=== PATIENT | male | born 1935 | race Caucasian/White ===

== ENCOUNTER 2017-08-19 13:07 | Inpatient (IN) ==
[2017-08-19] MEDS ORDERED: Aspirin 81 MG TAB.CHEW PO ONE (13:30)
--- NOTE | 2017-08-19 13:33 | Emergency Department Note ---
Disposition Clinical Impression: Chest pain Qualifiers: Chest pain type: unspecified Qualified Code(s): R07.9 - Chest pain, unspecified Disposition: Admitted As Inpatient Condition: Fair Time of Disposition: 16:03 General Adult HPI - General Chief complaint: ED Chest Pain Stated complaint: chest pain Time Seen by Provider: 08/19/17 13:30 Source: patient Mode of arrival: ambulatory Limitations: no limitations Nursing Notes Reviewed: Yes Vital Signs Reviewed: Yes - History of Present Illness HPI Narrative: Patient is a 81-year-old male with past medical history of hypertension and high cholesterol presents immersed part with complaint of intermittent chest pain has been going on since 8 PM yesterday evening. The patient states that he has had a sided chest pain that he is unable to describe that occurs and 32nd intervals and resolves on its own. He states that he has shortness of breath and weakness when the pain occurs. Denies any nausea, vomiting, radiation of pain, exertional pain. Patient states that he was shoveling snow this morning and he did not have the pain at that time. Denies any cardiac history his last cardiac workup was a stress test done 5 years ago in which she said that was okay. The patient took 2 baby aspirin prior to arrival. Denies any history of blood clots. Pain Scale: 0 - Related Data Home Medications Medication Instructions Recorded Confirmed Aspirin Enteric Coated [Aspirin EC] 81 mg PO DAILY 03/12/15 07/13/17 Atorvastatin Calcium [Lipitor] 20 mg PO DAILY 03/12/15 07/13/17 Celecoxib [Celebrex] 100 mg PO DAILY 03/12/15 07/13/17 Alfuzosin HCl [Uroxatral] 10 mg PO DAILY 05/05/15 07/13/17 Finasteride [Proscar] 5 mg PO DAILY 05/05/15 07/13/17 Previous Rx's Medication Instructions Recorded Abiraterone Acetate [Zytiga] 4 tab PO DAILY #120 tablet 05/24/17 predniSONE [PredniSONE] 5 mg PO BIDWM #60 tablet 05/24/17 Allergies Allergy/AdvReac Type Severity Reaction Status Date / Time No Known Allergies Allergy Verified 06/22/17 13:11 All systems ED: reviewed and negative except as stated. Review of Systems: As Per HPI Past Medical History - Past Medical History Attestation: Yes The following information was validated with the patient. Medical history: Reports: arthritis, cancer, hyperlipidemia, hypertension Surgical history: Reports: cholecystectomy Psychiatric history: Reports: no psych history - Social History Smoking Status: Never smoker Smokeless Tobacco Status: No Alcohol use: Reports: none Drug use: Reports: none Physical Exam Patient is hypertensive in the 160s/100s however otherwise his vital signs are within normal limits. The patient is in no acute distress she is sitting up in bed smiling and toxemia. This. - General Limitations: no limitations General appearance: alert, in no apparent distress - Head Head exam: atraumatic, normocephalic, normal inspection - Eye Eye exam: Present: normal appearance, PERRL, EOMI - ENT ENT exam: normal exam, normal oropharynx, mucous membranes moist - Neck Neck exam: Present: normal inspection, full ROM, trachea midline - Chest Chest inspection: Present: normal inspection, symmetric chest wall rise - Respiratory Respiratory exam: Present: normal lung sounds bilaterally. Absent: respiratory distress, wheezes - Cardiovascular Cardiovascular exam: Present: regular rate, normal rhythm, normal heart sounds, +S1, +S2 - Abdominal Exam Abdominal exam: Present: soft, Non-Tender, normal bowel sounds - Extremities Exam Extremities exam: Present: normal inspection, full ROM, normal capillary refill. Absent: tenderness, pedal edema - Back Exam Back exam: Present: normal inspection, full ROM. Absent: tenderness, CVA tenderness (R), CVA tenderness (L) - Neurological Exam Neurological exam: Present: alert, oriented X3 - Psychiatric Psychiatric exam: Present: normal affect, normal mood - Skin Skin exam: Present: warm, dry, intact, normal color Course Course Narrative: Patient is 78-year-old male he has no cardiac history with his last workup being a stress test done over 5 years ago was presented with complaint of intermittent chest pain has been going on since yesterday with about 8 episodes total. He is currently a symptomatically emergency department. The patient states he was shoveling snow prior to arrival and that was not causing him any chest pain. The plan is to cardiac work up of the patient including a chest x- ray, EKG and troponin and we will do basic labs to rule out any anemia or electrolyte disorder. Due to the patient being asymptomatic and satting well on room air and no tachycardia do not suspect that this is a PE or DVT he has no clinical findings or history to suggest so. We will also give the patient a full dose of aspirin. Nitroglycerin due to him being asymptomatic. - Reevaluation(s) Reevaluation #1: Patient remains stable and in good condition. His chest x-ray was unremarkable , EKG was negative for any ischemia and his labs were also unremarkable. I discussed his case with the hospitalist sales operations associate and plan to admit him for chest pain and the patient agrees with this plan. Time: 16:02 Vital Signs Temperature 98.3 F 08/19/17 13:11 Pulse Rate 99 08/19/17 13:11 Respiratory Rate 16 08/19/17 13:11 Blood Pressure 160/74 08/19/17 13:11 O2 Sat by Pulse Oximetry 98 08/19/17 13:11 Temperature 98.3 F 08/19/17 13:11 Pulse Rate 69 08/19/17 15:15 Respiratory Rate 16 08/19/17 15:15 Blood Pressure 134/91 08/19/17 15:15 O2 Sat by Pulse Oximetry 96 08/19/17 15:15 Oxygen Delivery Oxygen Delivery Room Air Medical Decision Making - Medical Records Medical records reviewed: Yes I reviewed the patient's medical records. - Lab Data Lab results reviewed: Yes I reviewed the patient's lab results. Result diagrams: 08/19/17 13:38 08/19/17 13:38 Lab Results 08/19/17 08/19/17 08/19/17 Range/Units 13:38 13:38 13:38 WBC 9.6 (4.3-11.1) K/mcL RBC 5.20 (4.19-5.50) M/mcL Hgb 15.0 (12.9-16.9) g/dL Hct 46.5 (37.5-50.1) % MCV 89.4 (83.0-100.0) fL MCH 28.8 (28.0-33.3) pg MCHC 32.3 (31.6-35.5) g/dL RDW 12.9 (11.5-14.5) % Plt Count 165 (140-400) K/mcL MPV 10.2 (9.4-12.4) fL Immature Gran % 0.2 (0-4) % Seg Neutrophils % 47.2 % Lymphocytes % 45.3 % Monocytes % 6.0 % Eosinophils % 1.1 % Basophils % 0.2 % Neutrophils # 4.5 (1.6-8.9) K/mcL Lymphocytes # 4.4 (0.6-4.6) K/mcL Monocytes # 0.6 (0.0-1.3) K/mcL Eosinophils # 0.1 (0.0-0.6) K/mcL Basophils # 0.0 (0.0-0.2) K/mcL Sodium 140 (136-145) mEq/L Potassium 4.4 (3.5-5.1) mEq/L Chloride 108 H (98-107) mEq/L Carbon Dioxide 26 (23-29) mEq/L BUN 21 (8-23) mg/dL Creatinine 0.93 (0.70-1.30) mg/dL Est GFR ( Amer) > 60 (> 60) Est GFR (Non-Af Amer) > 60 (> 60) BUN/Creatinine Ratio 23 (6-26) Glucose 99 (70-105) mg/dL Calculated Osmolality 293 (280-300) Calcium 9.3 (8.6-10.3) mg/dL Troponin I < 0.03 (< 0.04) ng/mL - Radiology Data Radiology results reviewed: Yes I reviewed the patient's radiology results. Chest X-Ray 08/19/17 13:30 IMPRESSION: No acute pulmonary process. D/ / Declan Walton / Declan Walton Interpreting Provider: Declan Walton - EKG Data EKG #1 EKG attestation: Yes I reviewed and interpreted this EKG. EKG results narrative: Patient EKG done at 13:23 shows sinus rhythm at a rate of 89 bpm. Normal axis. W[place] is 180, QRS 13, QT is 372 and QTC is 418 these are within normal limits. Good R-wave progression. No signs of ST elevation, ST depression or new Q waves. The patient does have Q waves in lead III , However these are unchanged from his old EKG which was done on September 2011.
[2017-08-19 13:47] LABS: Basophils % 0.2 %; Eosinophils # 0.1 K/mcL (0.0-0.6); Eosinophils % 1.1 %; Hematocrit 46.5 % (37.5-50.1); Immature Granulocytes % 0.2 % (0-4); Lymphocytes # 4.4 K/mcL (0.6-4.6); Lymphocytes % 45.3 %; Mean Corpuscular HGB Conc 32.3 g/dL (31.6-35.5); Mean Corpuscular Hemoglobin 28.8 pg (28.0-33.3); Mean Corpuscular Volume 89.4 fL (83.0-100.0); Mean Platelet Volume 10.2 fL (9.4-12.4); Monocytes # 0.6 K/mcL (0.0-1.3); Neutrophils # 4.5 K/mcL (1.6-8.9); Platelet Count 165 K/mcL (140-400); Red Cell Distribution Width 12.9 % (11.5-14.5); Segmented Neutrophils % 47.2 %
--- NOTE | 2017-08-19 13:56 | Emergency Department Note ---
START Narrative - START START: I examined this patient and my medical decision-making was reviewed with the GOLF SALES MANAGER/PA/Advanced Practice Nurse/Resident Physician. I agree with the documented findings, disposition and treatment plan as described except to the extent set forth below. ED attending note: Patient seen with emergency medicine resident Dr. Montez Multani. We independently evaluated the patient. We independently had face-to- face contact with the patient. Please see a copy of his note for details of the history and physical, evaluation, management and disposition of this emergency Department patient. Briefly: 81-year-old male history of high cholesterol and high blood pressure. No cardiac history. Last stress test was 5 years ago and was "okay". Presents with several days of nonexertional 30 seconds only discomfort with radiation into the arms. Patient is pain-free at this time. EKG shows no acute ischemic changes but nonspecific changes. Patient's HEART score is 4 which is above the threshold for consideration of discharge home. Patient be worked up for ACS with admission anticipated. Disposition pending
[2017-08-19 14:01] LABS: BUN/Creatinine Ratio 23 (6-26); Blood Urea Nitrogen 21 mg/dL (8-23); Calcium 9.3 mg/dL (8.6-10.3); Carbon Dioxide 26 mEq/L (23-29); Chloride 108 mEq/L (98-107); Glucose 99 mg/dL (70-105); Osmolality,Calculated 293 (280-300); Potassium 4.4 mEq/L (3.5-5.1); Sodium 140 mEq/L (136-145); eGFR For African Americans > 60 (> 60); eGFR For Non-African Americans > 60 (> 60)
[2017-08-19] MEDS ORDERED: *HR* Morphine 2 MG/ML SYRINGE IVP PRN (16:06)
[2017-08-19] MEDS ORDERED: Naloxone 0.4 MG/ML INJ IVP PRN (16:06)
--- NOTE | 2017-08-19 16:13 | Internal Med History&Physical ---
Date of Encounter: 08/19/17 Time of Encounter: 16:12 Internal Medicine - H&P: HPI Chief complaint: chest pain Admitted From: Emergency Dept Plans for Post Hospital Care: Home History of present illness: PCP: Dr Caraballo Brief PMh: CLL, Ca prostate on medical management, HTN, Past Med Surg Social Fam HX - Past Medical History Medical history: arthritis, cancer, hyperlipidemia, hypertension Psychiatric history: no psych history - Past Surgical History Surgical History: cholecystectomy - Social History Smoking Status: Never smoker Smokeless Tobacco Status: No Alcohol use: none Drug use: none Internal Medicine - H&P: Meds Aspirin Enteric Coated [Aspirin EC] 81 mg PO DAILY 03/12/15 [History] Atorvastatin Calcium [Lipitor] 20 mg PO DAILY 03/12/15 [History] Celecoxib [Celebrex] 100 mg PO DAILY 03/12/15 [History] Alfuzosin HCl [Uroxatral] 10 mg PO DAILY 05/05/15 [History] Finasteride [Proscar] 5 mg PO DAILY 05/05/15 [History] Abiraterone Acetate [Zytiga] 4 tab PO DAILY #120 tablet 05/24/17 [Rx] predniSONE [PredniSONE] 5 mg PO BIDWM #60 tablet 05/24/17 [Rx] 3 Allergy/AdvReac Type Severity Reaction Status Date / Time No Known Allergies Allergy Verified 06/22/17 13:11 All Systems PM: A 10-system review of systems was performed and is negative for pertinent findings except as documented above in the HPI. - Constitutional Vitals: Temp Pulse Resp BP Pulse Ox 98.3 F 69 16 134/91 96 08/19/17 13:11 08/19/17 15:15 08/19/17 15:15 08/19/17 15:15 08/19/17 15:15 Internal Med - H&P Results - Labs CBC & Chem 7: 08/19/17 13:38 08/19/17 13:38
[2017-08-19] MEDS: predniSONE 5 MG TABLET PO SCH (17:03)
[2017-08-19] MEDS ORDERED: Nitroglycerin 0.4 MG TAB.SUBL SL PRN (19:42)
[2017-08-20 04:45] LABS: Basophils % 0.4 %; Eosinophils # 0.3 K/mcL (0.0-0.6); Eosinophils % 3.1 %; Hematocrit 44.2 % (37.5-50.1); Hemoglobin 14.2 g/dL (12.9-16.9); Immature Granulocytes % 0.2 % (0-4); Lymphocytes # 5.1 K/mcL (0.6-4.6); Lymphocytes % 48.3 %; Mean Corpuscular HGB Conc 32.1 g/dL (31.6-35.5); Mean Corpuscular Hemoglobin 28.8 pg (28.0-33.3); Mean Corpuscular Volume 89.7 fL (83.0-100.0); Mean Platelet Volume 10.2 fL (9.4-12.4); Monocytes # 0.7 K/mcL (0.0-1.3); Monocytes % 6.7 %; Neutrophils # 4.3 K/mcL (1.6-8.9); Platelet Count 145 K/mcL (140-400); Red Blood Count 4.93 M/mcL (4.19-5.50); Red Cell Distribution Width 12.9 % (11.5-14.5); Segmented Neutrophils % 41.3 %
[2017-08-20 04:50] LABS: INR 1.1; Prothrombin Time 12.2 Seconds (9.4-12.1)
[2017-08-20 04:53] LABS: Activated Partial Thrombo Time 27.4 Seconds (26.0-36.0)
[2017-08-20 05:03] LABS: Alanine Aminotransferase 16 Units/L (7-52); Albumin 3.7 g/dL (3.5-5.7); Albumin/Globulin Ratio 1.9 (1.1-2.2); Alkaline Phosphatase 88 Units/L (34-104); Aspartate Amino Transferase 16 Units/L (13-39); BUN/Creatinine Ratio 29 (6-26); Bilirubin,Total 1.9 mg/dL (0.3-1.0); Blood Urea Nitrogen 24 mg/dL (8-23); Calcium 8.9 mg/dL (8.6-10.3); Carbon Dioxide 26 mEq/L (23-29); Chloride 109 mEq/L (98-107); Cholesterol 126 mg/dL (< 200); Globulin 1.9 g/dL (2.4-3.5); Glucose 143 mg/dL (70-105); HDL Cholesterol 42 mg/dL (40-59); LDL Cholesterol,Calculated 57 mg/dL (0-99); Magnesium 2.1 mg/dL (1.6-2.6); Osmolality,Calculated 301 (280-300); Potassium 3.9 mEq/L (3.5-5.1); Sodium 142 mEq/L (136-145); Total Protein 5.6 g/dL (6.4-8.9); Triglycerides 136 mg/dL (< 150); eGFR For African Americans > 60 (> 60); eGFR For Non-African Americans > 60 (> 60)
[2017-08-20] MEDS: Aspirin Enteric Coated 81 MG Tablet PO SCH (08:19)
[2017-08-20] MEDS: predniSONE 5 MG TABLET PO SCH ×2 (08:19→17:27)
[2017-08-20] MEDS: Finasteride 5 MG TABLET PO SCH (08:20)
[2017-08-20] MEDS ORDERED: Celecoxib 100 MG CAPSULE PO SCH (09:00)
--- NOTE | 2017-08-20 18:45 | Internal Med Progress Note ---
Date of Encounter: 08/21/17 Time of Encounter: 18:45 - Assessment and plan (1) Chest pain Current Visit: Yes Status: Acute Assessment and plan: Noted that 3 troponins are negative. Echocardiogram within normal limits. We will get a stress test tomorrow. Plan of care discussed with the patient and family members. 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 (3) Prostate cancer Current Visit: No Status: Chronic Assessment and plan: See above - Subjective Interval history: Patient seen and examined. Chart reviewed. Patient is comfortably lying in bed. Patient does not have any complaints at this time. - Constitutional Vitals: Temp Pulse Resp BP Pulse Ox 98.0 F 66 15 132/75 93 08/20/17 15:31 08/20/17 15:31 08/20/17 15:31 08/20/17 15:31 08/20/17 15:31 General appearance: Present: A&O X 3, pleasant, no acute distress, answers questions appropriately - Head Head exam: Present: atraumatic, normocephalic - Eye Eye exam: Present: PERRL, conjuntiva pink, sclera anicteric Pupils: Present: PERRL - Neck Neck exam general surgery: Present: supple, trachea midline. Absent: lymphadenopathy - Respiratory Respiratory exam: Present: CTAB. Absent: accessory muscle use, rales, rhonchi, wheezes - Cardiovascular Cardiovascular exam: Present: RRR, +S1, +S2. Absent: diastolic murmur, gallop, rubs, systolic murmur - GI/Abdominal GI/Abdominal exam: Present: normal bowel sounds, soft, no peritoneal signs. Absent: distended, tenderness - Extremities Exam Extremities exam: Present: warm, radial pulses palpable and symmetrical. Absent : calf tenderness, cyanotic, pedal edema - Neurological Exam Neurological exam: Present: CN II-XII intact, oriented X3, no focal deficits. Absent: pronater drift, facial droop, speech deficit - Skin Skin exam: Present: dry, intact Internal Medicine: Result - Labs CBC & Chem 7: 08/20/17 04:33 08/20/17 04:33 Labs: Short CBC 08/20/17 Range/Units 04:33 WBC 10.5 (4.3-11.1) K/mcL Hgb 14.2 (12.9-16.9) g/dL Hct 44.2 (37.5-50.1) % Plt Count 145 (140-400) K/mcL Neutrophils # 4.3 (1.6-8.9) K/mcL BMP 08/20/17 04:33 Sodium 142 Potassium 3.9 Chloride 109 H Carbon Dioxide 26 BUN 24 H Creatinine 0.84 Glucose 143 H Calcium 8.9 Cardiac Enzymes 08/19/17 08/20/17 08/20/17 Range/Units 19:27 01:24 04:33 Troponin I < 0.03 < 0.03 < 0.03 (< 0.04) ng/mL Liver Function 08/20/17 Range/Units 04:33 Total Bilirubin 1.9 H (0.3-1.0) mg/dL AST 16 (13-39) Units/L ALT 16 (7-52) Units/L Alkaline Phosphatase 88 (34-104) Units/L Albumin 3.7 (3.5-5.7) g/dL - ABG Interpretation ABG results: PT/INR, D-dimer PT 12.2 Seconds (9.4-12.1) H 08/20/17 04:33 - Impressions Impressions Echocardiogram 08/19/17 16:09 Impressions: LVEF 55%. Normal right ventricular structure and function. No pulmonary hypertension. No significant valvular dysfunction. Left Ventricular Wall Motion: Rest Echo Findings All wall segments showed normal motion. Findings: Study Quality * Technically adequate exam. ECG Findings * Sinus rhythm with PACs. Left Ventricle * LVEF 55%. Right Ventricle * Normal right ventricular structure and function. Left Atrium * Normal left atrial size. Right Atrium * Normal right atrial size. Interatrial Septum * Interatrial septum not well evaluated. Aortic Valve * Trileaflet aortic valve with normal function. Mitral Valve * Normal mitral valve structure and function. Tricuspid Valve * Normal tricuspid valve structure and function. Pulmonic Valve * Pulmonic valve not well visualized. Aorta * Normally sized aortic root. Pericardium * The pericardium appears normal. IVC * The IVC is not well evaluated. Consult Discharge Plan - Plan Referrals: Hector Dunn MD [Primary Care Provider] -
[2017-08-21] MEDS: predniSONE 5 MG TABLET PO SCH ×2 (05:59→18:01)
[2017-08-21] MEDS ORDERED: Regadenoson 0.4 MG/5 ML SYRINGE IVP ONE (06:52)
[2017-08-21] MEDS: Finasteride 5 MG TABLET PO SCH (09:22)
[2017-08-21] MEDS: Aspirin Enteric Coated 81 MG Tablet PO SCH (09:22)
--- NOTE | 2017-08-21 11:58 | Cardiology Consult Note ---
Date of Encounter: 08/21/17 Time of Encounter: 11:49 Assessment and Plan (1) Chest pain Current Visit: Yes Status: Acute The patient had a nuclear stress test today that did not reveal any evidence of ischemia. Patient also did not have any episodes of chest pain on maximal exertion during the stress test. However, patient has had 2 episodes of chest pain today that is similar in character as the ones he was having over the weekend. Troponins are not elevated, EKG does not reveal any evidence of new ischemia, echocardiogram of the heart is normal as well. At this time, I would recommend heart catheterization to further delineate the etiology of his symptoms. Risks of bleeding, infection, need for further procedures was discussed with patient and daughter at bedside. Will proceed with heart catheterization tomorrow. Qualifiers: Chest pain type: unspecified Qualified Code(s): R07.9 - Chest pain, unspecified (2) SVT (supraventricular tachycardia) Current Visit: Yes Status: Acute During the stress test, patient had short runs of SVT at maximal exertion. Patient denies having any symptoms of palpitations. We will start this patient on a low-dose beta alison. Metoprolol XL 25 mg once a day. (3) PAC (premature atrial contraction) Current Visit: Yes Status: Acute Will initiate low dose beta-alison as mentioned above as this patint has multiple PACs. Discussion w patient/family: The assessment and plan as outlined above was discussed with the patient and/or family members who expressed understanding and agreement. All questions were answered. Thank you for involving us in the care of your patient. Please call with any questions. History of Present Illness Consult date: 08/21/17 Requesting physician: Jayjay Monique Consult reason: Chast Pain Chief complaint: Chest Pain History of present illness: Mr. Fan is an 81 year old male with a past medical history of prostate cancer who presented to us because he has been having chest pain. Patient had his first episode while lying in bed on Monday night. He had four episodes of 45 seconds of left sided chest pain. It does not radiate anywhere. He can not describe the quality of pain he is having, only that he is having symptoms of panic with it. The patient has had two episodes today that were one hour ago lasting for 30-45 seconds. Patient states that he received a stress test today. Denied any symptoms of chest pain during the stress test. He denies any palpitations, shortness of breath, nausea, diaphoresis, lower extremity edema. Patient denies having a history of hypertension, hyperlipidemia, smoking, diabetes. He does admit to having a brother and father who both had heart attacks in their 70s. His father from the heart attack. Past Med Surg Social Fam HX - Past Medical History Attestation: Yes The following information was validated with the patient. Medical history: arthritis, cancer Psychiatric history: no psych history - Past Surgical History Surgical History: cholecystectomy - Social History Smoking Status: Never smoker Smokeless Tobacco Status: No Alcohol use: none Drug use: none Medications and Allergies Aspirin Enteric Coated [Aspirin EC] 81 mg PO DAILY 03/12/15 [History] Atorvastatin Calcium [Lipitor] 20 mg PO DAILY 03/12/15 [History] Alfuzosin HCl [Uroxatral] 10 mg PO DAILY 05/05/15 [History] Finasteride [Proscar] 5 mg PO DAILY 05/05/15 [History] Abiraterone Acetate [Zytiga] 1,000 mg PO DAILY 08/21/17 [History] predniSONE [PredniSONE] 5 mg PO DAILY 08/21/17 [History] 3 Allergy/AdvReac Type Severity Reaction Status Date / Time No Known Allergies Allergy Verified 06/22/17 13:11 All Systems Review: A 10-system review of systems was performed and is negative for pertinent findings except as documented above in the HPI. - Constitutional Constitutional: no fever(s), no lethargy, no night sweats, no weakness - Cardiovascular Cardiovascular: chest pain at rest, no chest pain with exertion, no claudication , no diaphoresis, no dyspnea at rest, no dyspnea on exertion, no palpitations, no syncope - Respiratory Respiratory: no cough, no dyspnea - Gastrointestinal Gastrointestinal: no abdominal pain - Musculoskeletal Musculoskeletal: no myalgias - Integumentary Integumentary: no rash - Neurological Neurological: no numbness Physical Examination Vital Signs, Last 4 Hours Temp Pulse Resp BP Pulse Ox 08/21/17 11:25 98.3 F 15 135/81 95 08/21/17 09:23 74 16 145/75 96 08/21/17 08:57 98.1 F 65 15 180/87 97 General: Conversant, No Apparent Distress HEENT: Atraumatic, Normocephaly, Mucus Membranes Moist Neck: No JVD Cardiac: Reg Rate and Rhythm, Normal S1 and S2, No Murmur Lungs: Normal Breath Sounds, No Wheeze, Rales, Rhonchi Neuro: Alert and responsive, No focal deficits noted Abdomen: Soft, Non-Tender Skin: No rashes noted on visualized skin Musculoskeletal: No Chest Wall Tenderness Extremities: No Edema, Normal Pulses Results 08/20/17 04:33 08/20/17 04:33 - Imaging and Cardiology Chest Xray: report reviewed Stress Test: report reviewed Echo: report reviewed - EKG Interpretation EKG results cardiology: personally reviewed Consult Discharge Plan - Plan Referrals: Hector Dunn MD [Primary Care Provider] -
--- NOTE | 2017-08-21 14:36 | Electrocardiograph Report ---
[place] [id number] Test Date: 2017-08-19 Pat Name: Bhupendra Fan Department: 104 Room: 3B43 Gender: M Route Cdl Driver: MSC : [id number] Requested By: Katy Murphy Order Number: [id number] Reading MD: Radha Kendall Measurements Intervals [place] Rate: 89 P: 26 ND: 180 QRS: 15 QRSD: 103 T: 22 QT: 372 QTc: 418 Interpretive Statements SINUS RHYTHM WITH OCCASIONAL SUPRAVENTRICULAR PREMATURE COMPLEXES Electronically Signed On 08-21-2017 14:34:58 EST by Radha Kendall
--- NOTE | 2017-08-21 17:13 | Oncology Inp Consult Note ---
Date of Encounter: 08/21/17 Time of Encounter: 17:09 Assessment and Plan (1) Prostate cancer Status: Chronic Assessment and plan: Continue per Abiraterone 1 g daily with prednisone 5 mg a day. Unlikely this is contributing to his chest pain. He had a good PSA response. We will repeat PSA today (2) CLL (chronic lymphocytic leukemia) Status: Chronic Assessment and plan: Lymphocyte count stable at 5000 rest of CBC unremarkable. No active treatment necessary (3) Chest pain Status: Acute Assessment and plan: Atypical chest pain. Troponins negative. Your stress test negative. Has PACs. Left Heart Catheterization planned for tomorrow Qualifiers: Chest pain type: unspecified Qualified Code(s): R07.9 - Chest pain, unspecified - Data of Consult Patient: known to practice within the last 3 years Requesting Physician: Katy Murphy CNP Primary Care Provider: Hector Dunn - Consult Narrative History of present illness: Mr. Fan is a 81 year old male hospitalized after noticing chest pain for the last 2-3 days. He claims its a dull pain chest with no radiation. Sometimes it lasts 5 minutes sometimes one hour. He had at least episodes or so before hospitalization. He denied shortness of breath and no radiation of the pain Since admission his troponins have been negative to less than 0.03. Nuclear stress test showed ejection fraction 58% no ischemia but exercise limited to 3 minutes He had few PACs. Cardiology involved and left heart catheterization planned for tomorrow Oncological history 1. Chronic lymphocytic leukemia. This was diagnosed 1992. It has been exceptionally stable and he has never required any antineoplastic intervention. Assessment such as FISH test were not available in 1992 and since he has been stable I have not done any molecular testing on his blood to see if he has any markers that would be adverse prognostic indicators. Obviously, his clinical course at 19 years indicates that his CLL is extraordinarily indolent and he does not require treatment to this day. Current lymphocyte count around 5000 and has been stable. Rest of CBC unremarkable 2. Metastatic prostate cancer 03/2015 - PSA has risen to 24. 03/27/2015 - prostate biopsy shows prostate adenocarcinoma 5+3 = 8. 04/10/2015 - MRI pelvis demonstrates locally advanced prostate cancer and likely new bony metastasis in the right ischium. 04/14/2015 - Bone scan demonstrates activity in right ischium and possibly spine and left rib. 04/28/2015 - Research Biopsy of ischial lesion at [facility]. 05/05/2015 - Lupron and casodex initiated. Subsequently maintained on Lupron alone Imaging CT abd/pel w/o contrast on 01/19/17 shows decreased density of sclerotic lesion in the right ischial tuberosity from prior imaging. Stable pelvic lymphadenopathy and this could be from CLL/SLL NM bone scan on 01/19/17 shows stable osseous metastatic lesions in the right ischial tuberosity and left posterior 5th rib. no evidence of metastatic disease PSA increase to 4.1 and 05/12/2017 Another bone scan on 04/26/2017 showed 2 lesions in the right pelvis and another lesion in the posterior left fifth rib but no new lesions Given that the pelvic lymph node could be from CLL and no change in bone scan He was evaluated by Dr. Hammond and considered not a candidate for prostate radiation. Second line treatment Abiraterarone 1 g by mouth daily with prednisone 5 mg twice a day starting 05/25. He is tolerating it well. Will reduce prednisone to 5 mg once a from Is responding and PSA came down to 1906 on 07/07/2017 Past Med Surg Social Fam HX - Past Medical History Medical history: arthritis, cancer Psychiatric history: no psych history - Past Surgical History Surgical History: cholecystectomy - Social History Smoking Status: Never smoker Smokeless Tobacco Status: No Alcohol use: none Drug use: none Medications and Allergies Aspirin Enteric Coated [Aspirin EC] 81 mg PO DAILY 03/12/15 [History] Atorvastatin Calcium [Lipitor] 20 mg PO DAILY 03/12/15 [History] Alfuzosin HCl [Uroxatral] 10 mg PO DAILY 05/05/15 [History] Finasteride [Proscar] 5 mg PO DAILY 05/05/15 [History] Abiraterone Acetate [Zytiga] 1,000 mg PO DAILY 08/21/17 [History] predniSONE [PredniSONE] 5 mg PO DAILY 08/21/17 [History] 3 Allergy/AdvReac Type Severity Reaction Status Date / Time No Known Allergies Allergy Verified 06/22/17 13:11 Review of systems: At the time of my visit he did not have major chest pain. He appeared fairly comfortable. No shortness of breath. No GI symptoms. Oncology - Exam - Constitutional Vitals: Temp Pulse Resp BP Pulse Ox 98.0 F 58 16 158/85 95 08/21/17 15:17 08/21/17 15:17 08/21/17 15:17 08/21/17 15:17 08/21/17 15:17 Consult Discharge Plan - Plan Referrals: Hector Dunn MD [Primary Care Provider] -
--- NOTE | 2017-08-21 20:06 | Internal Med Progress Note ---
Date of Encounter: 08/21/17 Time of Encounter: 20:04 - Assessment and plan (1) SVT (supraventricular tachycardia) Current Visit: Yes Status: Acute Assessment and plan: Patient underwent pharmacological stress test. Noted that patient's pharmacological stress test was negative for any defect in perfusion. During the stress test patient developed SVT this needs close monitoring as well as cardiac catheterization to rule out ischemic component which can be etiological factor for SVT. Cardiology consult was called in Case discussed in person with early intervention school psychologist. I understood that patient is scheduled for cardiac catheterization tomorrow. I have informed patient and patient's family member that I will be not on the service from tomorrow. (2) Chest pain Current Visit: Yes Status: Acute Assessment and plan: Noted that 3 troponins are negative. Echocardiogram within normal limits. We will get a stress test tomorrow. Plan of care discussed with the patient and family members. 08/21/2017. 1 or 2 episodes of chest pain. No new development otherwise. Qualifiers: Chest pain type: unspecified Qualified Code(s): R07.9 - Chest pain, unspecified (3) CLL (chronic lymphocytic leukemia) Current Visit: No Status: Chronic Assessment and plan: I called oncology to review the patient. (4) Prostate cancer Current Visit: No Status: Chronic Assessment and plan: See above - Subjective Interval history: Patient seen and examined. Chart reviewed. Patient is comfortably lying in bed. Patient does not have any complaints at this time. 08/21/2017. Patient seen and examined. Chart reviewed. Patient is comfortably sitting up in a chair. Patient's family at bedside Patient denies any short of breath, nausea, dizziness or diarrhea. - Constitutional Vitals: Temp Pulse Resp BP Pulse Ox 97.5 F L 65 16 156/65 94 08/21/17 19:29 08/21/17 19:29 08/21/17 19:29 08/21/17 19:29 08/21/17 19:29 General appearance: Present: A&O X 3, pleasant, no acute distress, answers questions appropriately - Head Head exam: Present: atraumatic, normocephalic - Eye Eye exam: Present: PERRL, conjuntiva pink, sclera anicteric Pupils: Present: PERRL - Neck Neck exam general surgery: Present: supple, trachea midline. Absent: lymphadenopathy - Respiratory Respiratory exam: Present: CTAB. Absent: accessory muscle use, rales, rhonchi, wheezes - Cardiovascular Cardiovascular exam: Present: RRR, +S1, +S2. Absent: diastolic murmur, gallop, rubs, systolic murmur - GI/Abdominal GI/Abdominal exam: Present: normal bowel sounds, soft, no peritoneal signs. Absent: distended, tenderness - Extremities Exam Extremities exam: Present: warm, radial pulses palpable and symmetrical. Absent : calf tenderness, cyanotic, pedal edema - Neurological Exam Neurological exam: Present: CN II-XII intact, oriented X3, no focal deficits. Absent: pronater drift, facial droop, speech deficit - Skin Skin exam: Present: dry, intact Internal Medicine: Result - Labs CBC & Chem 7: 08/20/17 04:33 08/20/17 04:33 - ABG Interpretation ABG results: PT/INR, D-dimer PT 12.2 Seconds (9.4-12.1) H 08/20/17 04:33 Consult Discharge Plan - Plan Referrals: Hector Dunn MD [Primary Care Provider] -
[2017-08-22 05:48] LABS: Basophils % 0.3 %; Eosinophils # 0.3 K/mcL (0.0-0.6); Eosinophils % 2.4 %; Hematocrit 43.6 % (37.5-50.1); Hemoglobin 14.1 g/dL (12.9-16.9); Immature Granulocytes % 0.2 % (0-4); Lymphocytes # 5.9 K/mcL (0.6-4.6); Lymphocytes % 50.4 %; Mean Corpuscular HGB Conc 32.3 g/dL (31.6-35.5); Mean Corpuscular Hemoglobin 28.8 pg (28.0-33.3); Mean Corpuscular Volume 89.2 fL (83.0-100.0); Mean Platelet Volume 10.9 fL (9.4-12.4); Monocytes # 0.5 K/mcL (0.0-1.3); Monocytes % 3.8 %; Neutrophils # 5.1 K/mcL (1.6-8.9); Platelet Count 161 K/mcL (140-400); Red Blood Count 4.89 M/mcL (4.19-5.50); Red Cell Distribution Width 12.8 % (11.5-14.5); Segmented Neutrophils % 42.9 %
[2017-08-22 06:07] LABS: Alanine Aminotransferase 15 Units/L (7-52); Albumin 3.6 g/dL (3.5-5.7); Albumin/Globulin Ratio 1.8 (1.1-2.2); Alkaline Phosphatase 89 Units/L (34-104); Aspartate Amino Transferase 16 Units/L (13-39); BUN/Creatinine Ratio 32 (6-26); Bilirubin,Total 1.4 mg/dL (0.3-1.0); Blood Urea Nitrogen 24 mg/dL (8-23); Calcium 8.9 mg/dL (8.6-10.3); Carbon Dioxide 27 mEq/L (23-29); Chloride 109 mEq/L (98-107); Glucose 109 mg/dL (70-105); Osmolality,Calculated 301 (280-300); Potassium 4.2 mEq/L (3.5-5.1); Sodium 143 mEq/L (136-145); Total Protein 5.6 g/dL (6.4-8.9); eGFR For African Americans > 60 (> 60); eGFR For Non-African Americans > 60 (> 60)
[2017-08-22] MEDS: Finasteride 5 MG TABLET PO SCH (07:46)
[2017-08-22] MEDS: predniSONE 5 MG TABLET PO SCH ×2 (07:46→18:02)
[2017-08-22] MEDS: Aspirin Enteric Coated 81 MG Tablet PO SCH (07:46)
[2017-08-22] MEDS: Metoprolol XL (24 HR) Succ 25 MG TAB.ER.24H PO SCH (07:46)
--- NOTE | 2017-08-22 09:53 | Pre-Sedation Evaluation ---
Pre-sedation evaluation - Pre-sedation checklist Date of procedure: 08/22/17 Procedure: [facility] Recent Vitals: Last Vital Signs Temp 97.6 F 08/22/17 07:35 Pulse 60 08/22/17 07:35 Resp 20 08/22/17 07:35 BP 144/78 08/22/17 07:35 Pulse Ox 95 08/22/17 07:35 H&P (including ROS) documented in medical record: Yes Previous reaction to sedatives/anesthetics: No Dietary Status: NPO after Midnight Airway Assessment: Patient can open mouth completely, TMJ function normal ASA Classification *see protocol: CLASS II-Mild systemic disease Plan of Care: Pt appropriate candidate for procedure/moderate/conscious sedation , Risks/benefits of procedure/sedation discussed w/ patient/family
[2017-08-22] MEDS ORDERED: Verapamil 5 MG/2 ML VIAL ONE (12:16)
[2017-08-22] MEDS ORDERED: Nitroglycerin 1,000 MCG/10 ML VIAL IV ONE (12:17)
[2017-08-22] MEDS ORDERED: Heparin 1,000 UNITS/500 mL 500 ML ONE (12:17)
[2017-08-22] MEDS ORDERED: 0.9 % Sodium Chloride 1,000 ML ONE ×2 (12:17→13:09)
[2017-08-22] MEDS ORDERED: *HR* Heparin 10,000 UNIT/10 ML VIAL ONE (12:17)
[2017-08-22] MEDS ORDERED: *HR* FentaNYL (PF) 100 MCG/2 ML VIAL ONE (13:14)
[2017-08-22] MEDS ORDERED: *HR* Midazolam HCl 2 MG/2 ML VIAL ONE ×2 (13:14→13:24)
[2017-08-22] MEDS ORDERED: Tirofiban 12.5 MG/250ML 12.5 MG/250 ML BAG ONE (13:33)
[2017-08-22] MEDS ORDERED: Acetaminophen 325 MG TABLET PO PRN (13:51)
[2017-08-22] MEDS ORDERED: *HR* Ticagrelor 90 MG TABLET ONE (13:51)
[2017-08-22] MEDS ORDERED: Ondansetron 4 MG/2 ML VIAL IVP PRN (13:52)
[2017-08-22] MEDS ORDERED: Tirofiban 12.5 MG/250ML 12.5 MG/250 ML BAG IVC SCH (14:00)
--- NOTE | 2017-08-22 14:05 | Invasive Diagnostic Lab Proc ---
Name: Bhupendra Fan Date of Study: 08/22/2017 Date: 1935 Ht: 74.0in Medical Record#: [id number] Age: 81 Wt: 213.85lb Gender: Male BSA: 2.24 Order #: [id number] BMI: 27.44 Physicians Procedure Physician: Sascha Smith MD, [facility] Referring MD: Referring MD: Staff Name Position Time In Lani Emery RN Life Science Technician 01:15 PM Daniella Cerda RT (R) Scrub 01:15 PM Miriam Alvarez RN Monitor 01:15 PM Amaya Zuniga RN Nurse 01:52 PM Indications Indication Unstable Angina Procedures Performed Procedure L HRT ARTERY/VENTRICLE ANGIO PRQ CARD KASANDRA STENT W/ANGIO 1 VSL Pre-Procedure Checklist Informed consent is complete signed and on chart. H&P is on chart. ID band is on and ID verified with patient. Patient NPO for procedure The procedure was described for the patient and questions were answered. ECG is on chart. Plan of Care Patient will tolerate the procedure without complications. Adequate level of comfort will be maintained. Hemodynamics will remain stable Patient will recover from procedure without complications. Respiratory function will be maintained. Cardiac rhythm will remain stable. Patient temperature will be maintained. Patient and/or family have verbalized understanding of the procedure. Patient Education Chief Complaint/Reason for Test: Cardiac Cath Developmental Category: Geriatric (65+ years) Developmentally Appropriate for Age: Yes Learning Barriers: None Education Needs: Procedure Education Method: Verbal Information Taught: Cardiac Cath Educational Evaluation: Able to repeat information Intravenous Access Time IV Size Location DC'd Fluid/Drip Rate Units RN 20g 1 08/10" Patent On Arrival Lt Antecubital Allergies No Known Allergies Vital Signs Time BP (mmHg) HR (bpm) O2 Sat. RR (bpm) LOC 144 / 78 60 95 % 20 5 = Fully awake and oriented or at pre-proc level 01:23 PM / % 5 = Fully awake and oriented or at pre-proc level 01:28 PM / % 5 = Fully awake and oriented or at pre-proc level 01:28 PM / % 4 = Oriented but drowsy 01:38 PM 142 / 70 58 93 % 18 01:42 PM 148 / 73 62 94 % 18 01:47 PM 155 / 71 70 95 % 22 01:13 PM 205 / 92 66 99 % 16 01:18 PM 202 / 101 68 99 % 23 01:18 PM 198 / 98 65 99 % 18 01:23 PM 198 / 90 65 99 % 19 01:28 PM 192 / 88 72 97 % 18 01:33 PM 133 / 78 93 91 % 18 Procedural Medications Time Medication Dose Units Method Given By 01:16 PM Oxygen 2 L/min nasal cannula Lani Emery RN 01:16 PM Versed 2 mg Intravenous Lani Emery RN 01:16 PM Fentanyl 50 mcg Intravenous Lani Emery RN 01:25 PM Lidocaine 2% 0.5 ml Subcutaneous Sascha Smith MD, FAC 01:26 PM Versed 1 mg Intravenous Lani Emery RN 01:26 PM Fentanyl 25 mcg Intravenous Lani Emery RN 01:27 PM Heparin 4000 units Nitroglycerin 200 mcg Verapamil 2.5 mg Intraarterial Sascha Smith MD, FAC 01:35 PM Aggrastat Bolus: 50 ml Intravenous Lani Emery RN 01:36 PM Aggrastat 12.5mg/250ml 18 ml/hr Intravenous Lani Emery RN 01:38 PM Heparin 1000 units Intravenous Lani Emery RN 01:50 PM Brilinta 180 mg Orally Lani Emery RN ASA Classification: CLASS II- Mild systemic disease (i.e. well-controlled diabetes, hypertension, asthma, cigarette smoking) Misha Score Preprocedure Postprocedure Activity 2- Moves 4 extremities sustained head lift Activity 2- Moves 4 extremities sustained head lift Circulation 2- SBP +/= 20 points of pre-anesthetic level Circulation 2- SBP +/= 20 points of pre-anesthetic level Consciousness 2- Awake and alert oriented x 3 Consciousness 2- Awake and alert oriented x 3 O2 Saturation 2- Able to maintain O2 satruation of 92% on room air O2 Saturation 2- Able to maintain O2 satruation of 92% on room air Respiratory 2- Able to deep breathe and cough well Respiratory 2- Able to deep breathe and cough well Total Score 10 Total Score 10 Contrast Agent: Isovue Diagnostic Contrast: 117 ml Total Contrast: 117 ml Fluoro Dose: 471 mGy Activated Clotting Time Time Seconds to Clot 01:37 PM 280 Procedure Log Time Note Enter By 12:57 PM CathStat 01:12 PM Vitals capture started with the following parameters, Patient=Adult, Interval=5 min, Initial Sxgycmrc=689 mmHg, Deflation Rate=5 mmHg, Cuff placed on Left Arm 01:13 PM HR=66 bpm, WKHE=992/92 mmhg, SpO2=99.0 %, Resp=16 B/min, Comment=NSR 01:15 PM Pt arrived to [facility] 2 at 13:15 tsites 01:15 PM Lani Emery RN Position: Life Science Technician Time in: 13:15 tsites 01:15 PM Sites, Daniella RT (R) Position: Scrub Time in: 13:15 tsites 01:15 PM Miriam Alvarez RN Position: Monitor Time in: 13:15 tsites 01:15 PM Patient charges- Angio tray pack, Navilyst 3mm J, Pulse Oximetry and ACIST tubing and transducer tsites 01:15 PM Case Delayed No tsites :16 PM Hair removed from procedure site in procedure lab using clippers. Right wrist and right groin prepped with Chloraprep by Prashant, Daniella RT (R), safety strap applied then patient was draped. Skin intact. tsites 01:16 PM Physican paged/called 13:16. tsites 01:16 PM Physican responded and notified patient is ready 13:16 tsites 01:16 PM Physician arrived 13:16 tsites 01:16 PM Meet and greet completed tsites 01:16 PM Meet and greet completed tsites 01:16 PM Sign in performed according to hospital policy. tsites 01:16 PM Procedure start 13:16 tsites 01:16 PM Time: 13:16 Oxygen on at 2 L/min per nasal cannula by Lani Emery RN tsites 01:16 PM Time: 13:16 Versed 2 mg Intravenous Given by Lani Emery RN tsites :16 PM Time: 13:16 Fentanyl 50 mcg Intravenous Given by Lani Emery RN tsites 01:16 PM Recorded ECG: HR=66 Condition=Condition 1 01:18 PM HR=68 bpm, ERQH=660/101 mmhg, SpO2=99.0 %, Resp=23 B/min, Comment=NSR 01:18 PM NIBP STAT measurement started. 01:18 PM HR=65 bpm, FIZL=534/98 mmhg, SpO2=99.0 %, Resp=18 B/min, Comment=NSR 01:19 PM ASA Class CLASS II- Mild systemic disease (i.e. well-controlled diabetes, hypertension, asthma, cigarette smoking) tsites : PM HR=65 bpm, MYBS=494/90 mmhg, SpO2=99.0 %, Resp=19 B/min, Comment=NSR PM Time: : Patient comfortable and pain free: Yes tsites PM Time: LOC: 5 = Fully awake and oriented or at pre-proc level tsites : PM Observed J loop not connected to IV port, medication did not get to patient. tsites : PM Clinical Presentation: Unstable angina tsites : PM Time out performed according to hospital policy tsites PM Time: : 0.5 ml Lidocaine 2% to right radial Subcutaneous Given by Sascha Smith MD, [facility] tsites : PM Access obtained by percutaneous puncture. 5- 6Fr 10cm Terumo Glidesheath sheath placed in right Radial artery. [id number] tsites PM Time: 13: Versed 1 mg Intravenous Given by Lani Emery RN tsites PM Time: 13: Fentanyl 25 mcg Intravenous Given by Lani Emery RN tsites PM Time: 13: Patient given 4,000 units Heparin, 200 mcg Nitroglycerin, and 2.5 mg Verapamil Intraarterial by Sascha Smith MD, [facility]. This is given to reduce risk of vessel spasm and thrombosis. tsites : PM 0.035 180cm Navilyst 3mmJ wire [id number] tsites : PM 5Fr TIG catheter inserted over the wire C tsites : PM j wire removed tsoummers PM HR=72 bpm, PSFQ=880/88 mmhg, SpO2=97.0 %, Resp=18 B/min, Comment=NSR PM Time: : Patient comfortable and pain free: Yes tsmmers PM Time: LOC: 5 = Fully awake and oriented or at pre-proc level tsoummers PM Pressure channel 1 zero failed. : PM Pressure channel 1 zeroed. : PM Recorded Pressure: LV, VK=084, Condition=Condition 1 (Left Ventricle) LV 97/22/18 : PM Catheter selectively placed in left ventricle tsoummers :29 PM Bolus angiogram of left Ventricle complete: 10 ml/sec for a total of 30 mls mm 01:29 PM Recorded Pressure: LV, Ao, HR=86, Condition=Condition 1 (Left Ventricle) LV 130/25/52, (Aorta) Ao ?/?/? 01:29 PM Recorded Pressure: Ao, HR=76, Condition=Condition 1 (Aorta) Ao 107/72/88 01:29 PM LCA angiography performed in multiple views. 01:29 PM Recorded Pressure: Ao, HR=73, Condition=Condition 1 (Aorta) Ao 109/74/90 01:31 PM Recorded Pressure: Ao, HR=85, Condition=Condition 1 (Aorta) Ao 97/70/84 01:31 PM RCA angiography performed in multiple views. :31 PM Coronary Dominance: right :31 PM Lesion found in Mid RCA. Pre Stenosis: 30 Pre CHICA Flow: :32 PM Lesion found in Proximal LAD. Pre Stenosis: 95 Pre CHICA Flow: 3: Complete and Brisk Flow/Perfusion :32 PM Lesion found in Mid Circumflex. Pre Stenosis: 30 Pre CHICA Flow: :32 PM Proximal Left Anterior Descending Coronary Artery with 95% stenosis. :33 PM HR=93 bpm, QCDS=262/78 mmhg, SpO2=91.0 %, Resp=18 B/min 01:33 PM Right Coronary, Right Posterior Descending Arteries with Right Posterolateral and Acute Marginal branches with 30 % stenosis. 01:33 PM Circumflex, Obtuse Marginal, Left Posterior Descending, and Left Posterolateral Coronary Arteries with 30 % stenosis. :33 PM Catheter removed :34 PM Inflation device was opened. :34 PM 6Fr CLS 3.5 Runway guide catheter was used to cannulate the PCI vessel successfully. reused? No mm:34 PM .014 [place] 190cm guide wire across target lesion- successful. reused? No tsoumm 01:35 PM Time: 13:35 Aggrastat Bolus: 50 ml Intravenous Given by Lani Emery RN Garcia pump 01:36 PM Time: 13:36 Aggrastat 12.5mg/250ml 18 ml/hr Intravenous Given by Lani Emery RN Garcia pump tsoummers 01:36 PM 2.0 mm x 15 mm Emerge Monorail balloon across target lesion- successful. reused? No tsoummers 01:37 PM Balloon inflated @ 8 piedad for 13 seconds tsoummers 01:37 PM At 13:37 the ACT was 280 seconds. tsoummers 01:38 PM Time: 13:38 Heparin 1000 units Intravenous Given by Lani Emery RN tsoummers 01:38 PM HR=58 bpm, THWG=578/70 mmhg, SpO2=93.0 %, Resp=18 B/min, Comment=NSR 01:38 PM Balloon catheter removed intact. tsoummers 01:39 PM 3.0mm x 16mm Synergy drug-eluting stent across target lesion- successful Lot #[id number] tsoummers 01:41 PM Stent deployed @ 15 piedda for 25 seconds tsoummers 01:41 PM Stent delivery system removed intact. tsoummers 01:42 PM 3.0 mm x 12mm NC Trek Rx balloon across target lesion- successful. reused? No tsoummers 01:42 PM Balloon inflated @ 18 piedad for 28 seconds tsoummers 01:42 PM HR=62 bpm, WIHA=058/73 mmhg, SpO2=94.0 %, Resp=18 B/min, Comment=NSR 01:43 PM Balloon catheter removed intact. tsoummers 01:43 PM Time: 13:28 Patient comfortable and pain free: Yes tsoummers 01:43 PM Time: 13:28LOC: 4 = Oriented but drowsy tsoummers 01:44 PM 3.5 mm x 6mm NC Emerge balloon across target lesion- successful. reused? No tsoummers 01:45 PM Balloon inflated @ 16 piedad for 16 seconds tsoummers 01:46 PM Balloon catheter removed intact. tsoummers 01:46 PM Guide wire removed intact. tsoummers 01:46 PM Recorded Pressure: Ao, HR=55, Condition=Condition 1 (Aorta) Ao 122/62/86 01:47 PM Guide catheter removed intact. [email or web address] 01:47 PM Procedure completed at 13:47 tsaureammers 01:47 PM HR=70 bpm, SSHR=067/71 mmhg, SpO2=95.0 %, Resp=22 B/min, Comment=NSR 01:48 PM Sign out completed: Radiation Dose 471.21 mGy Fluoro Time: 4.8 Isovue 370 - 200ml contrast 117 ml given by Sascha Smith MD, [facility]. Complications: NoneCardiac Rehab Consult needed: YesConfirmed administered medications: Yes tsoummers 01:48 PM Isovue 370 - 200ml,1 Bottle(s) used. tsoummers 01:49 PM Arterial sheath pulled, Vasc Band closure device used and was Successful S/N. tsoummers 01:49 PM 14 ml air in Vasc Band. tsoummers 01:49 PM Estimated Blood Loss: minimal tsoummers 01:49 PM Post ECG NSR tsoummers 01:49 PM Post Blood Pressure 155/71 tsoummers 01:49 PM 13:49 Post Pulses Rt Radial 1+ tsoummers 01:49 PM Information taught Cardiac Cath and PCI tsoummers 01:49 PM Education needs Procedure, Plan of Care, and Responsibilities of Patient in Care tsoummers 01:49 PM Learning barriers :None tsoummers 01:49 PM Education Methods Verbal tsoummers 01:49 PM Education evaluation Able to repeat information tsoummers 01:49 PM Site status No bleeding/hematoma - Rt Wrist as reported by Sites, Daniella RT (R) at 13:49 tsoummers 01:50 PM Family placed in consult room. tsoummers 01:50 PM Complications: None tsoummers 01:50 PM Fluoro Time: 4.8 tsoummers 01:50 PM Isovue 370 - 200ml contrast 117 ml given by Sascha Smith MD, [facility]. tsoummers 01:50 PM Radiation Dose 471.21 mGy tsoummers 01:51 PM Time: 13:50 Brilinta 180 mg Orally Given by Lani Emery RN tsoummers 01:51 PM Plavix, Effient or Brilinta given Yes tsoummers 01:51 PM Delay to floor No tsoummers 01:52 PM Amaya Zuniga RN Position: Nurse Time in: 13:52 tsoummers 01:54 PM Report given to Fahad BARAJAS Pt taken to 3B Room #43. 13:54 tsoummers 01:56 PM Patient out of room: 13:56 dodie Complications Complication None Hemodynamics Pressures Site Systolic/A Wave Diastolic/V Wave Mean LV 97 22 18 LV 130 25 52 AO AO 107 72 88 AO 109 74 90 AO 97 70 84 AO 122 62 86 Post Procedure Information Blood Pressure: 155/71 mmHg Rhythm: NSR Post procedural instructions were given Closure Device Time Device Success/Fail 08/22/2017 1:48:00 PM Mechanical Compression Successful Site Checks Time Location Status Staff Sheath In? Note 01:49 PM Rt Wrist No bleeding/hematoma Sites, Daniella RT (R) Pulses Time Site Pre-Procedure Post-Procedure Note 1:49:00 PM Rt Radial 1+ Updated by Miriam Alvarez RN on 08/22/2017 1:57:58 PM electronically signed on 08/22/2017 1:58:26 PM with status of Final
--- NOTE | 2017-08-22 15:23 | Internal Med Progress Note ---
Date of Encounter: 08/22/17 Time of Encounter: 09:30 - Assessment and plan (1) Chest pain Current Visit: Yes Status: Acute Assessment and plan: Noted that 3 troponins are negative. Echocardiogram within normal limits. We will get a stress test tomorrow. Plan of care discussed with the patient and family members. 08/21/2017. 1 or 2 episodes of chest pain. No new development otherwise. 08/22: No acute events. Scheduled for [facility] today. Cardiology on board and recommendations appreciated. Qualifiers: Chest pain type: unspecified Qualified Code(s): R07.9 - Chest pain, unspecified (2) SVT (supraventricular tachycardia) Current Visit: Yes Status: Acute Assessment and plan: Patient underwent pharmacological stress test. Noted that patient's pharmacological stress test was negative for any defect in perfusion. During the stress test patient developed SVT this needs close monitoring as well as cardiac catheterization to rule out ischemic component which can be etiological factor for SVT. Cardiology consult was called in Case discussed in person with consumer advocate. (3) Prostate cancer Current Visit: No Status: Chronic Assessment and plan: See above (4) CLL (chronic lymphocytic leukemia) Current Visit: No Status: Chronic Assessment and plan: I called oncology to review the patient. (5) Bone metastasis Current Visit: No Status: Acute - Subjective Interval history: No complaints, no acute events. Scheduled for [facility] today. - Constitutional Vitals: Temp Pulse Resp BP Pulse Ox 97.9 F 68 18 127/61 96 08/22/17 11:48 08/22/17 11:48 08/22/17 11:48 08/22/17 11:48 08/22/17 11:48 General appearance: Present: A&O X 3, pleasant, no acute distress, answers questions appropriately Exam: CVS: RRR Lungs; CTAB Ext: no edema Internal Medicine: Result - Labs CBC & Chem 7: 08/22/17 04:45 08/22/17 04:45 Labs: Short CBC 08/22/17 Range/Units 04:45 WBC 11.8 H (4.3-11.1) K/mcL Hgb 14.1 (12.9-16.9) g/dL Hct 43.6 (37.5-50.1) % Plt Count 161 (140-400) K/mcL Neutrophils # 5.1 (1.6-8.9) K/mcL BMP 08/22/17 04:45 Sodium 143 Potassium 4.2 Chloride 109 H Carbon Dioxide 27 BUN 24 H Creatinine 0.76 Glucose 109 H Calcium 8.9 Liver Function 08/22/17 Range/Units 04:45 Total Bilirubin 1.4 H (0.3-1.0) mg/dL AST 16 (13-39) Units/L ALT 15 (7-52) Units/L Alkaline Phosphatase 89 (34-104) Units/L Albumin 3.6 (3.5-5.7) g/dL - ABG Interpretation ABG results: PT/INR, D-dimer PT 12.2 Seconds (9.4-12.1) H 08/20/17 04:33 Consult Discharge Plan - Plan Referrals: Hector Dunn MD [Primary Care Provider] -
[2017-08-22] MEDS: *HR* Ticagrelor 90 MG TABLET PO SCH (21:09)
[2017-08-23 07:18] LABS: Basophils % 0.1 %; Eosinophils # 0.3 K/mcL (0.0-0.6); Eosinophils % 2.2 %; Hematocrit 45.7 % (37.5-50.1); Hemoglobin 14.8 g/dL (12.9-16.9); Immature Granulocytes % 0.4 % (0-4); Lymphocytes # 4.8 K/mcL (0.6-4.6); Lymphocytes % 39.5 %; Mean Corpuscular HGB Conc 32.4 g/dL (31.6-35.5); Mean Corpuscular Hemoglobin 28.6 pg (28.0-33.3); Mean Corpuscular Volume 88.2 fL (83.0-100.0); Mean Platelet Volume 10.9 fL (9.4-12.4); Monocytes # 0.7 K/mcL (0.0-1.3); Monocytes % 5.7 %; Neutrophils # 6.3 K/mcL (1.6-8.9); Platelet Count 151 K/mcL (140-400); Red Blood Count 5.18 M/mcL (4.19-5.50); Red Cell Distribution Width 12.9 % (11.5-14.5); Segmented Neutrophils % 52.1 %
--- NOTE | 2017-08-23 10:30 | Cardiology Progress Note ---
Date of Encounter: 08/23/17 Time of Encounter: 10:28 Assessment and Plan (1) Chest pain Current Visit: Yes Status: Acute Patient is one-day post cardiac catheterization and stent placement due to a 95 % occlusion in the proximal LAD. The patient is not in any episodes of chest pain since the cardiac catheterization. Insertion site of the right wrist does not reveal any evidence of infection, hematoma, pseudoaneurysm. The patient was given education on wound care. Patient was also given education on new medications. He will be taking aspirin 81 mg once a day, Brilinta 90 mg twice a day. He is also going to be prescribed 25 mg Toprol-XL once a day. Continue taking 5 mg lisinopril once a day and Atorvastatin 20 mg once a day. Patient will be set up with a follow-up appointment in 3 weeks with cardiology. The patient was instructed that if he could not afford the Brilinta, to call the cardiology office for necessary medication changes. Patient was told of the risks of missing dosages of Brilinta which included stent occlusion and . Patient and daughter agreed with the plan. At this time, we will sign off for care of this patient in the hospital setting and can follow back up on a PRN basis. Qualifiers: Chest pain type: chest pain due to myocardial ischemia Ischemic chest pain type: unstable angina pectoris Qualified Code(s): I20.0 - Unstable angina (2) CAD (coronary artery disease) Current Visit: Yes Status: Acute Patient has 95% occlusion of the proximal LAD. Stent was placed. Patient is already having any episodes of chest pain. See above for medical management. Qualifiers: Coronary Disease-Associated Artery/Lesion type: [place] artery [place] vs. transplanted heart: [place] heart Associated angina: with unstable angina Qualified Code(s): I25.110 - Atherosclerotic heart disease of [place] coronary artery with unstable angina pectoris (3) SVT (supraventricular tachycardia) Current Visit: Yes Status: Acute We will continue Metoprolol XL 25 mg once a day. (4) PAC (premature atrial contraction) Current Visit: Yes Status: Acute See above Discussion w patient/family: The assessment and plan as outlined above was discussed with the patient and/or family members who expressed understanding and agreement. All questions were answered. Thank you for involving us in the care of your patient. Please call with any questions. Subjective Principal diagnosis: Chest pain: Unstable Angina Interval history: Patient states that he has not had any episodes of chest pain since the ones he had an 11 clock a.m. 2 days ago. Patient states that he is having shortness of breath, and feeling fine otherwise. He is not reporting any pain on the right wrist where the catheter insertion site was, denies any fever or redness there as well. There was question from daughter about medications. Objective Vital Signs, Last 4 Hours Temp Pulse Resp BP Pulse Ox 08/23/17 06:44 98.2 F 56 18 153/80 94 General: Conversant, No Apparent Distress HEENT: Atraumatic, Normocephaly Neck: No JVD Cardiac: Reg Rate and Rhythm, No Murmur Lungs: Normal Breath Sounds, No Wheeze, Rales, Rhonchi Neuro: Alert and responsive Abdomen: Soft Skin: Other (Right wrist catheter Insertion site appears to be clean, no erythema, negative. No drainage, no evidence of hematoma.) Musculoskeletal: No Chest Wall Tenderness Extremities: No Clubbing, No Cyanosis Results 08/23/17 05:09 08/22/17 04:45 Lab Results 08/23/17 05:09 WBC 12.1 H Hgb 14.8 Hct 45.7 Plt Count 151 Consult Discharge Plan - Plan Referrals: Hector Dunn MD [Primary Care Provider] -
[2017-08-23] MEDS: predniSONE 5 MG TABLET PO SCH (11:04)
[2017-08-23] MEDS: Metoprolol XL (24 HR) Succ 25 MG TAB.ER.24H PO SCH (11:04)
[2017-08-23] MEDS: Finasteride 5 MG TABLET PO SCH (11:04)
[2017-08-23] MEDS: Aspirin Enteric Coated 81 MG Tablet PO SCH (11:04)
[2017-08-23] MEDS: *HR* Ticagrelor 90 MG TABLET PO SCH (11:04)
[2017-08-23 11:18] VITALS: BP 146/78
--- NOTE | 2017-08-23 14:06 | Discharge Summary ---
Date of Encounter: 08/23/17 Time of Encounter: 14:02 - Discharge Diagnosis (1) Chest pain Priority: Primary Status: Acute Qualifiers: Chest pain type: chest pain due to myocardial ischemia Ischemic chest pain type: unstable angina pectoris Qualified Code(s): I20.0 - Unstable angina (2) SVT (supraventricular tachycardia) Priority: Secondary Status: Acute (3) Prostate cancer Priority: Secondary Status: Chronic (4) CLL (chronic lymphocytic leukemia) Priority: Secondary Status: Chronic (5) Bone metastasis Priority: Secondary Status: Acute - Discharge Medications Prescriptions: Nitroglycerin 0.4 mg SL Q5MIN PRN #5 tab.subl PRN Reason: Chest Pain Lisinopril [Zestril] 5 mg PO DAILY #10 tablet Metoprolol XL (24 HR) Succ [Toprol Xl] 25 mg PO DAILY #30 tab.er.24h Ticagrelor [Brilinta] 90 mg PO BID #60 tablet Home Medications: Aspirin Enteric Coated [Aspirin EC] 81 mg PO DAILY 03/12/15 [History] Atorvastatin Calcium [Lipitor] 20 mg PO DAILY 03/12/15 [History] Alfuzosin HCl [Uroxatral] 10 mg PO DAILY 05/05/15 [History] Finasteride [Proscar] 5 mg PO DAILY 05/05/15 [History] Abiraterone Acetate [Zytiga] 1,000 mg PO DAILY 08/21/17 [History] predniSONE [PredniSONE] 5 mg PO DAILY 08/21/17 [History] Lisinopril [Zestril] 5 mg PO DAILY #10 tablet 08/23/17 [Rx] Metoprolol XL (24 HR) Succ [Toprol Xl] 25 mg PO DAILY #30 tab.er.24h 08/23/17 [ Rx] Nitroglycerin 0.4 mg SL Q5MIN PRN #5 tab.subl 08/23/17 [Rx] Patient Taking Own Medication 4 each PO DAILY each 08/23/17 [Rx] Ticagrelor [Brilinta] 90 mg PO BID #60 tablet 08/23/17 [Rx] Allergies/Adverse Reactions: 3 Allergy/AdvReac Type Severity Reaction Status Date / Time No Known Allergies Allergy Verified 06/22/17 13:11 Procedures/tests Complete & Pending: Procedures Performed prior 72 hours Category Date Time Status ECG 12 lead ECG [ECG] AM 0600 Y 01/17/18 06:00 Ordered ECG 12 lead ECG [ECG] Stat Y 08/22/17 13:51 Ordered Date of admission: 08/21/17 20:02 Primary care physician: Hector Dunn Consults: 08/22/17 13:51 Consult to Cardiac Rehabilitation-Phase1 [CONS] Routine Comment: Reason for Consult: post op PCI Call Completed: Yes Discharging clinician: Margarita Duran - Patient Status Disposition: Home, Self-Care Condition: Fair Functional capacity at discharge: independent ambulation Overall status at discharge: patient is progressing back to baseline - Discharge Instructions Follow Up With: Hector Dunn MD [Primary Care Provider] - Forms: ED Satisfaction Letter - Diet and Activity Activity: increase activity as tolerated Diet: advance to your usual diet, low fat, low cholesterol, low salt diet Hospital course: Mr. Fan is a 81 year old male with history of CLL, Ca prostate on medical management, HTN presented for persistent, intermittent chest pain for several days. They lasted about minutes at a time. He denied palpitations, radiation, nausea/vomiting, diaphoresis, edema. Patient is non-compliant with antihypertensive medications. Has strong family history of coronary artery disease. In the ED patient had EKG showing mild ST-T changes. He was admitted to rule out acute coronary syndrome. Cardiac enzymes were cycled and were negative. Echcardiogram was done was within normal limits. Patien whitney left heart catheterization on 08/22/17 requiring stent placement in LAD. He was continued on aspirin and Brillinta was added to medications. Also Toprol-XL started. He was chest pain free. He was set up for outpatient Cardiology office follow-up. He was discharged home in stable condition. - Time Spent with Patient Total time spent providing and/or coordinating discharge services: - Constitutional Vitals: Temp Pulse Resp BP Pulse Ox 97.9 F 67 16 146/78 95 08/23/17 11:17 08/23/17 11:17 08/23/17 11:17 08/23/17 11:17 08/23/17 11:17 General appearance: Present: A&O X 3, pleasant, no acute distress, answers questions appropriately
== END 2017-08-23 16:45 | disposition home or self-care (01) | DRG 247 ==
LOC: EMEROO 13:07 → 3BNU 13:07 → SUATTDRO 08-21 20:02
PROVIDERS: ADMIT Registered Nurse; ATTEND Student in an Organized Health Care Education/Training Program

== ENCOUNTER 2017-09-04 17:46 | Inpatient (IN) ==
[2017-09-04 19:02] LABS: Basophils % 0.2 %; Eosinophils # 0.2 K/mcL (0.0-0.6); Eosinophils % 1.4 %; Hematocrit 44.6 % (37.5-50.1); Hemoglobin 14.4 g/dL (12.9-16.9); Immature Granulocytes % 0.3 % (0-4); Lymphocytes # 4.4 K/mcL (0.6-4.6); Lymphocytes % 39.4 %; Mean Corpuscular HGB Conc 32.3 g/dL (31.6-35.5); Mean Corpuscular Hemoglobin 28.2 pg (28.0-33.3); Mean Corpuscular Volume 87.3 fL (83.0-100.0); Mean Platelet Volume 9.9 fL (9.4-12.4); Monocytes # 0.6 K/mcL (0.0-1.3); Monocytes % 4.9 %; Platelet Count 186 K/mcL (140-400); Red Blood Count 5.11 M/mcL (4.19-5.50); Red Cell Distribution Width 12.9 % (11.5-14.5); Segmented Neutrophils % 53.8 %
[2017-09-04 19:17] LABS: Bilirubin,Urine Negative (Negative); Blood,Urine Negative (Negative); Color,Urine Yellow (Yellow); Glucose,Urine (UA) Normal (Normal); Ketones,Urine Negative (Negative); Leukocyte Esterase,Urine Negative (Negative); Nitrite,Urine Negative (Negative); Protein,Urine Negative (Neg-Trace); Specific Gravity,Urine 1.022 (1.010-1.025); Urobilinogen,Urine Normal (Normal)
[2017-09-04 19:18] LABS: Clarity,Urine Slightly Hazy (Clear)
[2017-09-04 19:20] LABS: BUN/Creatinine Ratio 24 (6-26); Blood Urea Nitrogen 22 mg/dL (8-23); Carbon Dioxide 24 mEq/L (23-29); Chloride 101 mEq/L (98-107); Glucose 207 mg/dL (70-105); Osmolality,Calculated 283 (280-300); Potassium 3.9 mEq/L (3.5-5.1); Sodium 132 mEq/L (136-145); eGFR For African Americans > 60 (> 60); eGFR For Non-African Americans > 60 (> 60)
--- NOTE | 2017-09-04 19:22 | Emergency Department Note ---
Disposition Clinical Impression: HCAP (healthcare-associated pneumonia), URI with cough and congestion Disposition: Admitted As Inpatient Condition: Fair Referrals: Hector Dunn MD [Primary Care Provider] - Time of Disposition: 20:43 General Adult HPI - General Chief complaint: ED General Medical Stated complaint: Cough/weakness/dehydration Source: patient, family Limitations: no limitations Nursing Notes Reviewed: Yes Vital Signs Reviewed: Yes - History of Present Illness HPI Narrative: 82-year-old male complaining of cough and congestion 4 days also has a recent history of cardiac stent placed 2 weeks ago for 95% blockage of LAD. Patient had acute onset of coughing bouts and fatigue. Patient was started on Mucinex which helped with his cough but 2 days later patient started feeling heavily fatigue and stayed in bed most of the. Patient's daughter bedside states that he is having low-grade fever of 99 degrees Fahrenheit. Patient started to look more ill and was getting weaker. Patient is brought in for evaluation for concerns over dehydration and extreme fatigue. Pain Scale: 0 - Related Data Home Medications Medication Instructions Recorded Confirmed Aspirin Enteric Coated [Aspirin EC] 81 mg PO DAILY 03/12/15 08/21/17 Atorvastatin Calcium [Lipitor] 20 mg PO DAILY 03/12/15 08/19/17 Alfuzosin HCl [Uroxatral] 10 mg PO DAILY 05/05/15 08/19/17 Finasteride [Proscar] 5 mg PO DAILY 05/05/15 08/19/17 Abiraterone Acetate [Zytiga] 1,000 mg PO 0630 09/04/17 09/04/17 GuaiFENesin/Dextromethorphan 1 each PO Q6H 09/04/17 09/04/17 [Mucinex DM] Lisinopril [Zestril] 5 mg PO QPM PRN 09/04/17 09/04/17 predniSONE [PredniSONE] 5 mg PO BID 09/04/17 09/04/17 Previous Rx's Medication Instructions Recorded Metoprolol XL (24 HR) Succ [Toprol 25 mg PO DAILY #30 tab.er.24h 08/23/17 Xl] Nitroglycerin 0.4 mg SL Q5MIN PRN #5 tab.subl 08/23/17 Ticagrelor [Brilinta] 90 mg PO BID #60 tablet 08/23/17 Allergies Allergy/AdvReac Type Severity Reaction Status Date / Time No Known Allergies Allergy Verified 06/22/17 13:11 All systems ED: reviewed and negative except as stated. Review of Systems: As Per HPI Constitutional: Reports: fever, weakness ENT ED: Reports: congestion Cardiovascular: Denies: chest pain Respiratory: Reports: cough Neurological: Reports: weakness Past Medical History - Past Medical History Attestation: Yes The following information was validated with the patient. Source: patient, nursing notes reviewed Medical history: Reports: cancer, hyperlipidemia, hypertension, other Surgical history: Reports: cholecystectomy Psychiatric history: Reports: no psych history - Social History Smoking Status: Never smoker Smokeless Tobacco Status: No Alcohol use: Reports: none Drug use: Reports: none Physical Exam Vital Signs Temperature 99.5 F 09/04/17 18:06 Pulse Rate 84 09/04/17 18:06 Respiratory Rate 18 09/04/17 18:06 Blood Pressure 123/71 09/04/17 18:06 O2 Sat by Pulse Oximetry 96 09/04/17 18:06 Temperature 99.5 F 09/04/17 18:06 Pulse Rate 84 09/04/17 18:06 Respiratory Rate 18 09/04/17 18:06 Blood Pressure 123/71 09/04/17 18:06 O2 Sat by Pulse Oximetry 96 09/04/17 18:06 Oxygen Delivery Oxygen Delivery Room Air CONSTITUTIONAL: Alert and oriented X3, well-nourished, well appearing, in no apparent distress, and patient is nontoxic appearing HEAD: Normocephalic; atraumatic. EYES: PERRL, no scleral icterus. NOSE: The nose is normal in appearance without rhinorrhea RESP: Normal chest excursion with respiration; breath sounds clear and equal bilaterally; no wheezes, rhonchi, or rales CARD: Regular rhythm, without murmurs, rub or gallop ABD: Non-distended; non-tender, soft,without rigidity, rebound or guarding SKIN: Normal for age and race; warm and dry; no apparent lesions - General Limitations: no limitations General appearance: alert Course - Reevaluation(s) Reevaluation #1: Patient being taken down for chest x-ray. Time: 18:50 Reevaluation #2: Reevaluated patient, patient has no complaints at this time. Time: 19:20 Reevaluation #3: Patient's patient's chest x-ray reveals new opacification in the right lower lung field concerning for pneumonia. Patient was started on antibiotics levofloxacin, Zosyn and vancomycin for HCAP. Time: 20:25 - Consultations Consultation #1: Dr. Hudson the hospitalist as accepted patient for admission Time: 20:43 Vital Signs Temperature 99.5 F 09/04/17 18:06 Pulse Rate 84 09/04/17 18:06 Respiratory Rate 18 09/04/17 18:06 Blood Pressure 123/71 09/04/17 18:06 O2 Sat by Pulse Oximetry 96 09/04/17 18:06 Temperature 99.5 F 09/04/17 18:06 Pulse Rate 84 09/04/17 18:06 Respiratory Rate 18 09/04/17 18:06 Blood Pressure 123/71 09/04/17 18:06 O2 Sat by Pulse Oximetry 96 09/04/17 18:06 Oxygen Delivery Oxygen Delivery Room Air Medical Decision Making - MDM Narrative Medical decision making narrative: Patient brought in with extreme weakness recent acute onset of cough congestion concerning for possible infection viral or bacterial. Patient also concerning for ACS/DE given the recent stent placement 2 weeks ago. Workup fairly unremarkable with exception of chest x-ray which shows a new slight opacification in the right lung lower lobe. Given patient's other symptoms, patient has HCAP will be started on vancomycin, levofloxacin, and Zosyn after blood cultures are acquired. Patient also will receive 500 mL IV normal saline bolus. He is still tolerating by mouth intake and can hydrate orally as well. Patient's that has no chest pain. Troponin is negative and nonischemic EKG. Patient has a mildly elevated WBC at 11.2 but he has pneumonia. Patient family understands and agrees to treatment for admission. Dr. Hudson the hospitalist as accepted patient for admission - Lab Data Lab results reviewed: Yes I reviewed the patient's lab results. Lab results narrative: Short CBC 09/04/17 Range/Units 18:50 WBC 11.2 H (4.3-11.1) K/mcL Hgb 14.4 (12.9-16.9) g/dL Hct 44.6 (37.5-50.1) % Plt Count 186 (140-400) K/mcL Neutrophils # 6.0 (1.6-8.9) K/mcL BMP 09/04/17 Range/Units 18:50 Sodium 132 L (136-145) mEq/L Potassium 3.9 (3.5-5.1) mEq/L Chloride 101 (98-107) mEq/L Carbon Dioxide 24 (23-29) mEq/L BUN 22 (8-23) mg/dL Creatinine 0.92 (0.70-1.30) mg/dL Glucose 207 H (70-105) mg/dL Calcium 9.0 (8.6-10.3) mg/dL Cardiac Enzymes 09/04/17 Range/Units 18:50 Troponin I < 0.03 (< 0.04) ng/mL Urine 09/04/17 Range/Units 18:44 Urine Color Yellow (Yellow) Urine Clarity Slightly Hazy (Clear) Urine pH 6.0 (5.0-8.0) pH Units Ur Specific [place] 1.022 (1.010-1.025) Urine Protein Negative (Neg-Trace) mg/dL Urine Glucose (UA) Normal (Normal) mg/dL Result diagrams: 09/04/17 18:50 Lab Results 09/04/17 Range/Units 18:50 WBC 11.2 H (4.3-11.1) K/mcL RBC 5.11 (4.19-5.50) M/mcL Hgb 14.4 (12.9-16.9) g/dL Hct 44.6 (37.5-50.1) % MCV 87.3 (83.0-100.0) fL MCH 28.2 (28.0-33.3) pg MCHC 32.3 (31.6-35.5) g/dL RDW 12.9 (11.5-14.5) % Plt Count 186 (140-400) K/mcL MPV 9.9 (9.4-12.4) fL Immature Gran % 0.3 (0-4) % Seg Neutrophils % 53.8 % Lymphocytes % 39.4 % Monocytes % 4.9 % Eosinophils % 1.4 % Basophils % 0.2 % Neutrophils # 6.0 (1.6-8.9) K/mcL Lymphocytes # 4.4 (0.6-4.6) K/mcL Monocytes # 0.6 (0.0-1.3) K/mcL Eosinophils # 0.2 (0.0-0.6) K/mcL Basophils # 0.0 (0.0-0.2) K/mcL - Radiology Data Radiology results reviewed: Yes I reviewed the patient's radiology results. Chest X-Ray 09/04/17 18:14 IMPRESSION: Developing opacity in the right lower lobe, concerning for pneumonia. Recommend follow-up radiographs in 6-8 weeks to document resolution. D/ / Matias Mcmahon MD / Matias Mcmahon MD Interpreting Provider: Matias Mcmahon MD - EKG Data EKG #1 EKG attestation: Yes I reviewed and interpreted this EKG. EKG results narrative: EKG taken 09/04/2017 at 2036 hrs. shows sinus rhythm at a rate of 60 beats a minute with occasional PVCs. No signs of ischemia. This was compared to previous EKG taken 08/19/2017 which also shows sinus rhythm rate of 89 bpm and is also nonischemic.
[2017-09-04] MEDS ORDERED: 0.9 % Sodium Chloride 500 ML IVC ONE (20:06)
[2017-09-04] MEDS ORDERED: Piperacillin/Tazobactam 3.375 GM in Water for inj. (sterile) 20 ML IVP ONE (20:17)
[2017-09-04] MEDS ORDERED: Vancomycin 1,500 MG in D5% in Water 250 ML IVPB ONE (20:17)
[2017-09-04] MEDS ORDERED: Levofloxacin 750 MG/150 ML 750 MG/150 ML BAG IVPB ONE (20:17)
--- NOTE | 2017-09-04 20:37 | Emergency Department Note ---
START Narrative - START START: I examined this patient and my medical decision-making was reviewed with the CLIENT SUPPORT ANALYST/PA/Advanced Practice Nurse/Resident Physician. I agree with the documented findings, disposition and treatment plan as described except to the extent set forth below. ED attending: Patient's emergency medicine resident Dr. Tyler Pollard. Please see copy of this note for H&P evaluation and management and ED disposition. We both had independent [id number] time in contact with this patient. Briefly: A 82-year-old male history of recent stent with after they found 95% blockage in the LAD and just feeling really weak and tired loss of energy dyspnea. No discrete chest pain. The patient arrives afebrile with stable vital signs chest x-ray shows right lower lobe pneumonia. Patient due to his post stent status and pneumonia age and other comorbid risk factors will be admitted for healthcare acquired pneumonia
[2017-09-04 21:15] LABS: Magnesium 1.9 mg/dL (1.6-2.6); Phosphorous 3.1 mg/dL (2.7-4.5)
[2017-09-04] MEDS ORDERED: Naloxone 0.4 MG/ML INJ IVP PRN (21:51)
[2017-09-04] MEDS ORDERED: Nitroglycerin 0.4 MG TAB.SUBL SL PRN (21:56)
[2017-09-04] MEDS ORDERED: Vancomycin 1,500 MG in D5% in Water 250 ML IVPB SCH (22:00)
--- NOTE | 2017-09-04 22:42 | Internal Med History&Physical ---
Date of Encounter: 09/04/17 Time of Encounter: 21:00 Assessment and Plan (1) DVT prophylaxis Current visit: Yes Status: Acute Heparin subcutaneously (2) Prostate cancer Current visit: No Status: Chronic Continue home medication Zytiga and prednisone. Continue follow-up with oncology as outpatient (3) CAD (coronary artery disease) Current visit: No Status: Acute Has a recent stent placed. Denies chest pain. EKG unremarkable. - Continue home medication DAPT, beta alison and statin. Qualifiers: Coronary Disease-Associated Artery/Lesion type: [place] artery [place] vs. transplanted heart: [place] heart Associated angina: with unstable angina Qualified Code(s): I25.110 - Atherosclerotic heart disease of [place] coronary artery with unstable angina pectoris (4) HCAP (healthcare-associated pneumonia) Current visit: Yes Status: Acute Chest x-ray shows RLL pneumonia. Patient has been hospitalized recently. Consider HCAP. - Continue Vanco, Zosyn, and Levaquin, follow-up blood and sputum culture - Continue Robitussin for symptomatic control - Nasal cannula oxygen as needed Internal Medicine - H&P: HPI Chief complaint: Cough Admitted From: Home Plans for Post Hospital Care: Home History of present illness: Mr. Fan is a 82 year old male with history of prostate cancer, CAD S/P stent, presented to ER for cough and fatigue and dizziness for 1-2 days. Patient has recently been hospitalized for LHC and stenting. Patient said he has cough with clear sputum. Cough can be controlled by Robitussin. Patient denies a fever. Patient denies any runny nose. Patient has no chest pain. In emergency room, CXR shows RLL pneumonia. Patient denies shortness of breath. Patient was admitted for HCAP. Past Med Surg Social Fam HX - Past Medical History Medical history: cancer, hyperlipidemia, hypertension, other Psychiatric history: no psych history - Past Surgical History Surgical History: cholecystectomy - Social History Smoking Status: Never smoker Smokeless Tobacco Status: No Alcohol use: none Drug use: none - Family History Mother History Unknown: Yes Internal Medicine - H&P: Meds Aspirin Enteric Coated [Aspirin EC] 81 mg PO DAILY 03/12/15 [History] Atorvastatin Calcium [Lipitor] 20 mg PO DAILY 03/12/15 [History] Alfuzosin HCl [Uroxatral] 10 mg PO DAILY 05/05/15 [History] Finasteride [Proscar] 5 mg PO DAILY 05/05/15 [History] Metoprolol XL (24 HR) Succ [Toprol Xl] 25 mg PO DAILY #30 tab.er.24h 08/23/17 [ Rx] Nitroglycerin 0.4 mg SL Q5MIN PRN #5 tab.subl 08/23/17 [Rx] Ticagrelor [Brilinta] 90 mg PO BID #60 tablet 08/23/17 [Rx] Abiraterone Acetate [Zytiga] 1,000 mg PO 0630 09/04/17 [History] GuaiFENesin/Dextromethorphan [Mucinex DM] 1 each PO Q6H 09/04/17 [History] Lisinopril [Zestril] 5 mg PO QPM PRN 09/04/17 [History] predniSONE [PredniSONE] 5 mg PO BID 09/04/17 [History] 3 Allergy/AdvReac Type Severity Reaction Status Date / Time No Known Allergies Allergy Verified 06/22/17 13:11 All Systems PM: A 10-system review of systems was performed and is negative for pertinent findings except as documented above in the HPI. - Constitutional Vitals: Temp Pulse Resp BP Pulse Ox 99.5 F 63 16 138/75 93 09/04/17 18:06 09/04/17 20:41 09/04/17 20:41 09/04/17 20:41 09/04/17 20:41 General appearance: Present: A&O X 3, no acute distress, answers questions appropriately - Head Head exam: Present: atraumatic, normocephalic - Eye Eye exam: Present: PERRL, conjuntiva pink, sclera anicteric Pupils: Present: PERRL - Neck Neck exam general surgery: Present: supple, trachea midline. Absent: lymphadenopathy - Respiratory Respiratory exam: Present: CTAB. Absent: accessory muscle use, rales, rhonchi, wheezes - Cardiovascular Cardiovascular exam: Present: RRR, +S1, +S2. Absent: diastolic murmur, gallop, rubs, systolic murmur - GI/Abdominal GI/Abdominal exam: Present: normal bowel sounds, soft, no peritoneal signs. Absent: distended, tenderness - Extremities Exam Extremities exam: Present: warm, radial pulses palpable and symmetrical. Absent : calf tenderness, cyanotic, pedal edema - Neurological Exam Neurological exam: Present: CN II-XII intact, oriented X3, no focal deficits. Absent: pronater drift, facial droop, speech deficit - Skin Skin exam: Present: dry, intact Internal Med - H&P Results - Labs CBC & Chem 7: 09/04/17 18:50 09/04/17 18:50 - EKG Data -: EKG Interpreted by Myself EKG shows normal: sinus rhythm Rate: normal
[2017-09-05 00:49] LABS: Basophils % 0.2 %; Eosinophils # 0.3 K/mcL (0.0-0.6); Eosinophils % 2.1 %; Hematocrit 42.9 % (37.5-50.1); Hemoglobin 14.1 g/dL (12.9-16.9); Immature Granulocytes % 0.3 % (0-4); Lymphocytes # 5.8 K/mcL (0.6-4.6); Lymphocytes % 45.7 %; Mean Corpuscular HGB Conc 32.9 g/dL (31.6-35.5); Mean Corpuscular Hemoglobin 28.4 pg (28.0-33.3); Mean Corpuscular Volume 86.5 fL (83.0-100.0); Mean Platelet Volume 9.7 fL (9.4-12.4); Monocytes # 0.7 K/mcL (0.0-1.3); Monocytes % 5.5 %; Neutrophils # 5.9 K/mcL (1.6-8.9); Platelet Count 175 K/mcL (140-400); Red Blood Count 4.96 M/mcL (4.19-5.50); Segmented Neutrophils % 46.2 %
[2017-09-05 01:06] LABS: BUN/Creatinine Ratio 26 (6-26); Blood Urea Nitrogen 23 mg/dL (8-23); Calcium 8.8 mg/dL (8.6-10.3); Carbon Dioxide 24 mEq/L (23-29); Chloride 105 mEq/L (98-107); Glucose 142 mg/dL (70-105); Magnesium 1.9 mg/dL (1.6-2.6); Osmolality,Calculated 288 (280-300); Potassium 3.8 mEq/L (3.5-5.1); Sodium 136 mEq/L (136-145); eGFR For African Americans > 60 (> 60); eGFR For Non-African Americans > 60 (> 60)
[2017-09-05] MEDS: *HR* Heparin 5,000 UNIT/ML VIAL SQ SCH ×2 (06:29→17:12)
[2017-09-05] MEDS ORDERED: 0.9 % Sodium Chloride 1,000 ML ONE (09:25)
[2017-09-05] MEDS: Metoprolol XL (24 HR) Succ 25 MG TAB.ER.24H PO SCH (09:39)
[2017-09-05] MEDS: *HR* Ticagrelor 90 MG TABLET PO SCH ×2 (09:39→21:19)
[2017-09-05] MEDS: Aspirin Enteric Coated 81 MG Tablet PO SCH (09:39)
[2017-09-05] MEDS: Finasteride 5 MG TABLET PO SCH (09:39)
[2017-09-05] MEDS: predniSONE 5 MG TABLET PO SCH ×2 (09:40→21:19)
[2017-09-05] MEDS: 0.9 % Sodium Chloride 1,000 ML IVC SCH ×2 (09:48→23:36)
[2017-09-05] MEDS ORDERED: Vancomycin 1,250 MG in D5% in Water 250 ML IVPB SCH (11:00)
--- NOTE | 2017-09-05 18:31 | Internal Med Progress Note ---
Date of Encounter: 09/05/17 Time of Encounter: 18:30 - Assessment and plan (1) HCAP (healthcare-associated pneumonia) Current Visit: Yes Status: Acute Assessment and plan: 82/male Admitted with a stable right lower lobe pneumonia. Recent hospitalization for chest pain/coronary artery disease/obstructed LAD with 95% blockage /underwent PCI Patient was evaluated in the urgent care and noted that patient's blood pressure 100 systolic. Patient was transferred to emergency room. Initial workup showed right lower lobe pneumonia with a lactic acid of 2.2. Plan: Will continue present antibiotics for another 24 hours. Blood culture negative then we will the deaccelerate antibiotics. Close monitoring of the vital signs. (2) CAD (coronary artery disease) Current Visit: No Status: Acute Assessment and plan: Recent PCI as mentioned above. We will continue DAPT/beta alison and statin Qualifiers: Coronary Disease-Associated Artery/Lesion type: [place] artery [place] vs. transplanted heart: [place] heart Associated angina: with unstable angina Qualified Code(s): I25.110 - Atherosclerotic heart disease of [place] coronary artery with unstable angina pectoris (3) CLL (chronic lymphocytic leukemia) Current Visit: No Status: Chronic Assessment and plan: We will resume home medication. (4) Prostate cancer Current Visit: No Status: Chronic Assessment and plan: We will resume home medication. (5) DVT prophylaxis Current Visit: Yes Status: Acute Assessment and plan: Heparin Medical decision making: This patient has a moderate to severe risk of worsening in spite of being on appropriate treatment due to the underlying complex medical comorbid conditions - Subjective Interval history: Patient seen and examined. Chart reviewed. Patient is comfortably lying in the bed. Patient denies chest pain, shortness of breath, nausea, dizziness, diarrhea and vomiting. - Constitutional Vitals: Temp Pulse Resp BP Pulse Ox 98.1 F 62 15 145/75 95 09/05/17 14:36 09/05/17 14:36 09/05/17 14:36 09/05/17 14:36 09/05/17 14:36 General appearance: Present: A&O X 3, no acute distress, answers questions appropriately - Head Head exam: Present: atraumatic, normocephalic - Eye Eye exam: Present: PERRL, conjuntiva pink, sclera anicteric Pupils: Present: PERRL - Neck Neck exam general surgery: Present: supple, trachea midline. Absent: lymphadenopathy - Respiratory Respiratory exam: Present: CTAB. Absent: accessory muscle use, rales, rhonchi, wheezes - Cardiovascular Cardiovascular exam: Present: RRR, +S1, +S2. Absent: diastolic murmur, gallop, rubs, systolic murmur - GI/Abdominal GI/Abdominal exam: Present: normal bowel sounds, soft, no peritoneal signs. Absent: distended, tenderness - Extremities Exam Extremities exam: Present: warm, radial pulses palpable and symmetrical. Absent : calf tenderness, cyanotic, pedal edema - Neurological Exam Neurological exam: Present: CN II-XII intact, oriented X3, no focal deficits. Absent: pronater drift, facial droop, speech deficit - Skin Skin exam: Present: dry, intact Internal Medicine: Result - Labs CBC & Chem 7: 09/05/17 00:41 09/05/17 00:41 Labs: Short CBC 09/05/17 Range/Units 00:41 WBC 12.7 H (4.3-11.1) K/mcL Hgb 14.1 (12.9-16.9) g/dL Hct 42.9 (37.5-50.1) % Plt Count 175 (140-400) K/mcL Neutrophils # 5.9 (1.6-8.9) K/mcL BMP 09/05/17 00:41 Sodium 136 Potassium 3.8 Chloride 105 Carbon Dioxide 24 BUN 23 Creatinine 0.87 Glucose 142 H Calcium 8.8 Consult Discharge Plan - Plan Referrals: Hector Dunn MD [Primary Care Provider] -
--- NOTE | 2017-09-05 19:45 | Electrocardiograph Report ---
[place] [id number] Test Date: 2017-09-04 Pat Name: Bhupendra Fan Department: 103 Room: 2NE24 Gender: M Mh Teacher: ALVARO : 1935 Requested By: Tyler Pollard Order Number: [id number] Reading MD: Shayy Echols Measurements Intervals [place] Rate: 62 P: 55 MA: 199 QRS: 21 QRSD: 86 T: 47 QT: 404 QTc: 410 Interpretive Statements SINUS RHYTHM WITH OCCASIONAL SUPRAVENTRICULAR PREMATURE COMPLEXES Electronically Signed On 09-05-2017 19:43:59 EST by Shayy Echols
[2017-09-05] MEDS: Levofloxacin 750 MG/150 ML 750 MG/150 ML BAG IVPB SCH (21:20)
[2017-09-06] MEDS: *HR* Heparin 5,000 UNIT/ML VIAL SQ SCH ×2 (05:00→18:12)
[2017-09-06] MEDS ORDERED: Aminoglycoside Consult 1 EACH MC ONE (08:27)
[2017-09-06] MEDS: predniSONE 5 MG TABLET PO SCH ×2 (09:29→19:51)
[2017-09-06] MEDS: Metoprolol XL (24 HR) Succ 25 MG TAB.ER.24H PO SCH (09:29)
[2017-09-06] MEDS: *HR* Ticagrelor 90 MG TABLET PO SCH ×2 (09:29→19:51)
[2017-09-06] MEDS: Aspirin Enteric Coated 81 MG Tablet PO SCH (09:29)
[2017-09-06] MEDS: Finasteride 5 MG TABLET PO SCH (09:29)
--- NOTE | 2017-09-06 11:12 | Internal Med Progress Note ---
Date of Encounter: 09/06/17 Time of Encounter: 11:06 - Assessment and plan (1) HCAP (healthcare-associated pneumonia) Current Visit: Yes Status: Acute Assessment and plan: 82/male Admitted with a stable right lower lobe pneumonia. Recent hospitalization for chest pain/coronary artery disease/obstructed LAD with 95% blockage /underwent PCI Patient was evaluated in the urgent care and noted that patient's blood pressure 100 systolic. Patient was transferred to emergency room. Initial workup showed right lower lobe pneumonia with a lactic acid of 2.2. Plan: Will continue present antibiotics for another 24 hours. Blood culture negative then we will the deaccelerate antibiotics. Close monitoring of the vital signs. 09/06/2017 Today patient is more comfortable. Patient is not using any accessory muscles of respiration. Has occasional cough but able to sleep last night. Blood cultures negative so far. Antibiotics: Vancomycin/Zosyn/levofloxacin: Day 2 Plan: Blood cultures are negative by tomorrow, we will discontinue vancomycin. Will continue rest of the treatment for now. (2) CAD (coronary artery disease) Current Visit: No Status: Acute Assessment and plan: Recent PCI as mentioned above. We will continue DAPT/beta alison and statin 09/06/2017 Stable coronary artery disease. Denies any chest pain. Patient has appointment to see cardiology coming Monday. Qualifiers: Coronary Disease-Associated Artery/Lesion type: [place] artery [place] vs. transplanted heart: [place] heart Associated angina: with unstable angina Qualified Code(s): I25.110 - Atherosclerotic heart disease of [place] coronary artery with unstable angina pectoris (3) CLL (chronic lymphocytic leukemia) Current Visit: No Status: Chronic Assessment and plan: We will resume home medication. (4) Prostate cancer Current Visit: No Status: Chronic Assessment and plan: We will resume home medication. (5) DVT prophylaxis Current Visit: Yes Status: Acute Assessment and plan: Heparin Medical decision making: This patient has a moderate to severe risk of worsening in spite of being on appropriate treatment due to the underlying complex medical comorbid conditions Spoke to patient's family at length regarding course of disease and prognosis. Plan explained. All questions answered - Subjective Interval history: Patient seen and examined. Chart reviewed. Patient is comfortably lying in the bed. Patient denies chest pain, shortness of breath, nausea, dizziness, diarrhea and vomiting. 09/06/2017 Patient seen and examined. Chart reviewed. Patient's daughter is at bedside. Patient has occasional cough. Patient denies chest pain, nausea, vomiting, abdominal pain, dizziness and diarrhea. - Constitutional Vitals: Temp Pulse Resp BP Pulse Ox 97.8 F 67 16 132/81 96 09/06/17 08:08 09/06/17 08:08 09/06/17 08:08 09/06/17 08:08 09/06/17 08:08 General appearance: Present: A&O X 3, no acute distress, answers questions appropriately - Head Head exam: Present: atraumatic, normocephalic - Eye Eye exam: Present: PERRL, conjuntiva pink, sclera anicteric Pupils: Present: PERRL - Neck Neck exam general surgery: Present: supple, trachea midline. Absent: lymphadenopathy - Respiratory Respiratory exam: Present: CTAB. Absent: accessory muscle use, rales, rhonchi, wheezes - Cardiovascular Cardiovascular exam: Present: RRR, +S1, +S2. Absent: diastolic murmur, gallop, rubs, systolic murmur - GI/Abdominal GI/Abdominal exam: Present: normal bowel sounds, soft, no peritoneal signs. Absent: distended, tenderness - Extremities Exam Extremities exam: Present: warm, radial pulses palpable and symmetrical. Absent : calf tenderness, cyanotic, pedal edema - Neurological Exam Neurological exam: Present: CN II-XII intact, oriented X3, no focal deficits. Absent: pronater drift, facial droop, speech deficit - Skin Skin exam: Present: dry, intact Internal Medicine: Result - Labs CBC & Chem 7: 09/05/17 00:41 09/05/17 00:41 Consult Discharge Plan - Plan Referrals: Hector Dunn MD [Primary Care Provider] -
[2017-09-06] MEDS: Vancomycin 1,500 MG in D5% in Water 250 ML IVPB SCH (11:35)
[2017-09-06 17:30] LABS: Adenovirus Not Detected (Not Detect); Bordetella Pertussis Not Detected (Not Detect); Chlamydophila pneumoniae Not Detected (Not Detect); Coronavirus 229E Not Detected (Not Detect); Coronavirus HKU1 Not Detected (Not Detect); Coronavirus NL63 Not Detected (Not Detect); Coronavirus OC43 Not Detected (Not Detect); Human Metapneumovirus ***DETECTED*** (Not Detect); Human Rhinovirus/Enterovirus Not Detected (Not Detect); Influenza A Subtype 2009 H1 Not Detected (Not Detect); Influenza A Untypeable Not Detected (Not Detect); Influenza B Not Detected (Not Detect); Mycoplasma pneumoniae Not Detected (Not Detect); Parainfluenza Virus 1 Not Detected (Not Detect); Parainfluenza Virus 2 Not Detected (Not Detect); Parainfluenza Virus 3 Not Detected (Not Detect); Parainfluenza Virus 4 Not Detected (Not Detect); Respiratory Syncytial Virus Not Detected (Not Detect)
[2017-09-06] MEDS: 0.9 % Sodium Chloride 1,000 ML IVC SCH (18:13)
[2017-09-06] MEDS: GuaiFENesin/Dextromethorphan TABLET PO SCH (19:51)
[2017-09-06] MEDS: Levofloxacin 750 MG/150 ML 750 MG/150 ML BAG IVPB SCH (19:51)
[2017-09-07 03:50] LABS: Basophils % 0.3 %; Eosinophils # 0.2 K/mcL (0.0-0.6); Eosinophils % 1.8 %; Hematocrit 39.1 % (37.5-50.1); Hemoglobin 12.9 g/dL (12.9-16.9); Immature Granulocytes % 0.3 % (0-4); Lymphocytes # 5.6 K/mcL (0.6-4.6); Lymphocytes % 50.8 %; Mean Corpuscular Hemoglobin 29.1 pg (28.0-33.3); Mean Corpuscular Volume 88.1 fL (83.0-100.0); Mean Platelet Volume 9.9 fL (9.4-12.4); Monocytes # 0.4 K/mcL (0.0-1.3); Monocytes % 3.6 %; Neutrophils # 4.7 K/mcL (1.6-8.9); Platelet Count 166 K/mcL (140-400); Red Blood Count 4.44 M/mcL (4.19-5.50); Red Cell Distribution Width 12.9 % (11.5-14.5); Segmented Neutrophils % 43.2 %
[2017-09-07 04:18] LABS: Alanine Aminotransferase 11 Units/L (7-52); Albumin 3.2 g/dL (3.5-5.7); Albumin/Globulin Ratio 1.6 (1.1-2.2); Alkaline Phosphatase 73 Units/L (34-104); Aspartate Amino Transferase 13 Units/L (13-39); BUN/Creatinine Ratio 22 (6-26); Bilirubin,Total 0.8 mg/dL (0.3-1.0); Blood Urea Nitrogen 17 mg/dL (8-23); Calcium 8.2 mg/dL (8.6-10.3); Carbon Dioxide 25 mEq/L (23-29); Chloride 110 mEq/L (98-107); Glucose 117 mg/dL (70-105); Osmolality,Calculated 291 (280-300); Potassium 3.9 mEq/L (3.5-5.1); Sodium 139 mEq/L (136-145); Total Protein 5.2 g/dL (6.4-8.9); eGFR For African Americans > 60 (> 60); eGFR For Non-African Americans > 60 (> 60)
[2017-09-07] MEDS: predniSONE 5 MG TABLET PO SCH ×2 (05:52→20:47)
[2017-09-07] MEDS: *HR* Heparin 5,000 UNIT/ML VIAL SQ SCH ×2 (05:54→16:55)
[2017-09-07] MEDS: Finasteride 5 MG TABLET PO SCH (08:39)
[2017-09-07] MEDS: Aspirin Enteric Coated 81 MG Tablet PO SCH (08:39)
[2017-09-07] MEDS: *HR* Ticagrelor 90 MG TABLET PO SCH ×2 (08:39→20:47)
[2017-09-07] MEDS: GuaiFENesin/Dextromethorphan TABLET PO SCH ×2 (08:39→22:15)
[2017-09-07] MEDS: Metoprolol XL (24 HR) Succ 25 MG TAB.ER.24H PO SCH (08:39)
[2017-09-07] MEDS: 0.9 % Sodium Chloride 1,000 ML IVC SCH (10:16)
[2017-09-07] MEDS: Vancomycin 1,500 MG in D5% in Water 250 ML IVPB SCH (10:25)
--- NOTE | 2017-09-07 16:12 | Internal Med Progress Note ---
Date of Encounter: 09/07/17 Time of Encounter: 16:10 - Assessment and plan (1) HCAP (healthcare-associated pneumonia) Current Visit: Yes Status: Acute Assessment and plan: 82/male Admitted with a stable right lower lobe pneumonia. Recent hospitalization for chest pain/coronary artery disease/obstructed LAD with 95% blockage /underwent PCI Patient was evaluated in the urgent care and noted that patient's blood pressure 100 systolic. Patient was transferred to emergency room. Initial workup showed right lower lobe pneumonia with a lactic acid of 2.2. Plan: Will continue present antibiotics for another 24 hours. Blood culture negative then we will the deaccelerate antibiotics. Close monitoring of the vital signs. 09/06/2017 Today patient is more comfortable. Patient is not using any accessory muscles of respiration. Has occasional cough but able to sleep last night. Blood cultures negative so far. Antibiotics: Vancomycin/Zosyn/levofloxacin: Day 2 Plan: Blood cultures are negative by tomorrow, we will discontinue vancomycin. Will continue rest of the treatment for now. 09/07/2017 Blood culture negative: 48 hours: Will discontinue vancomycin. Patient's hydration is adequate: We will discontinue IV fluids. Noted that patient has a positive PCR for human metapneumovirus. Plan: Will continue present treatment for a while. Possibly oral antibiotics tomorrow and then home. Recommended patient to walk around the hallway. (2) CAD (coronary artery disease) Current Visit: No Status: Acute Assessment and plan: Recent PCI as mentioned above. We will continue DAPT/beta alison and statin 09/06/2017 Stable coronary artery disease. Denies any chest pain. Patient has appointment to see cardiology coming Monday. Qualifiers: Coronary Disease-Associated Artery/Lesion type: [place] artery [place] vs. transplanted heart: [place] heart Associated angina: with unstable angina Qualified Code(s): I25.110 - Atherosclerotic heart disease of [place] coronary artery with unstable angina pectoris (3) CLL (chronic lymphocytic leukemia) Current Visit: No Status: Chronic Assessment and plan: We will resume home medication. (4) Prostate cancer Current Visit: No Status: Chronic Assessment and plan: We will resume home medication. (5) DVT prophylaxis Current Visit: Yes Status: Acute Assessment and plan: Heparin Medical decision making: This patient has a moderate to severe risk of worsening in spite of being on appropriate treatment due to the underlying complex medical comorbid conditions Spoke to patient's family at length regarding course of disease and prognosis. Plan explained. All questions answered - Subjective Interval history: Patient seen and examined. Chart reviewed. Patient is comfortably lying in the bed. Patient denies chest pain, shortness of breath, nausea, dizziness, diarrhea and vomiting. 09/06/2017 Patient seen and examined. Chart reviewed. Patient's daughter is at bedside. Patient has occasional cough. Patient denies chest pain, nausea, vomiting, abdominal pain, dizziness and diarrhea. 09/07/2017 Patient seen and examined. Chart reviewed. Should is comfortably lying in bed. Denies chest pain, nausea, vomiting, abdominal pain, dizziness and diarrhea. - Constitutional Vitals: Temp Pulse Resp BP Pulse Ox 98.8 F 57 18 152/70 97 09/07/17 15:00 09/07/17 15:00 09/07/17 15:00 09/07/17 15:00 09/07/17 15:44 General appearance: Present: A&O X 3, no acute distress, answers questions appropriately - Head Head exam: Present: atraumatic, normocephalic - Eye Eye exam: Present: PERRL, conjuntiva pink, sclera anicteric Pupils: Present: PERRL - Neck Neck exam general surgery: Present: supple, trachea midline. Absent: lymphadenopathy - Respiratory Respiratory exam: Present: CTAB. Absent: accessory muscle use, rales, rhonchi, wheezes - Cardiovascular Cardiovascular exam: Present: RRR, +S1, +S2. Absent: diastolic murmur, gallop, rubs, systolic murmur - GI/Abdominal GI/Abdominal exam: Present: normal bowel sounds, soft, no peritoneal signs. Absent: distended, tenderness - Extremities Exam Extremities exam: Present: warm, radial pulses palpable and symmetrical. Absent : calf tenderness, cyanotic, pedal edema - Neurological Exam Neurological exam: Present: CN II-XII intact, oriented X3, no focal deficits. Absent: pronater drift, facial droop, speech deficit - Skin Skin exam: Present: dry, intact Internal Medicine: Result - Labs CBC & Chem 7: 09/07/17 03:23 09/07/17 03:23 Labs: Short CBC 09/07/17 Range/Units 03:23 WBC 10.9 (4.3-11.1) K/mcL Hgb 12.9 (12.9-16.9) g/dL Hct 39.1 (37.5-50.1) % Plt Count 166 (140-400) K/mcL Neutrophils # 4.7 (1.6-8.9) K/mcL BMP 09/07/17 03:23 Sodium 139 Potassium 3.9 Chloride 110 H Carbon Dioxide 25 BUN 17 Creatinine 0.79 Glucose 117 H Calcium 8.2 L Liver Function 09/07/17 Range/Units 03:23 Total Bilirubin 0.8 (0.3-1.0) mg/dL AST 13 (13-39) Units/L ALT 11 (7-52) Units/L Alkaline Phosphatase 73 (34-104) Units/L Albumin 3.2 L (3.5-5.7) g/dL - VTE Documentation of Mechanical Device: Intermittent pneumatic compression device Consult Discharge Plan - Plan Referrals: Hector Dunn MD [Primary Care Provider] -
[2017-09-07] MEDS: Benzonatate 100 MG CAPSULE PO SCH (20:47)
[2017-09-07] MEDS: Levofloxacin 750 MG/150 ML 750 MG/150 ML BAG IVPB SCH (20:47)
[2017-09-08 04:45] LABS: Basophils % 0.3 %; Eosinophils # 0.3 K/mcL (0.0-0.6); Eosinophils % 2.7 %; Hematocrit 39.8 % (37.5-50.1); Hemoglobin 12.8 g/dL (12.9-16.9); Immature Granulocytes % 0.3 % (0-4); Lymphocytes # 5.4 K/mcL (0.6-4.6); Lymphocytes % 53.1 %; Mean Corpuscular HGB Conc 32.2 g/dL (31.6-35.5); Mean Corpuscular Hemoglobin 28.1 pg (28.0-33.3); Mean Corpuscular Volume 87.3 fL (83.0-100.0); Mean Platelet Volume 9.9 fL (9.4-12.4); Monocytes # 0.5 K/mcL (0.0-1.3); Monocytes % 4.4 %; Platelet Count 153 K/mcL (140-400); Red Blood Count 4.56 M/mcL (4.19-5.50); Segmented Neutrophils % 39.2 %
[2017-09-08 04:59] LABS: Alanine Aminotransferase 11 Units/L (7-52); Albumin 3.3 g/dL (3.5-5.7); Albumin/Globulin Ratio 1.7 (1.1-2.2); Alkaline Phosphatase 70 Units/L (34-104); Aspartate Amino Transferase 14 Units/L (13-39); BUN/Creatinine Ratio 24 (6-26); Blood Urea Nitrogen 21 mg/dL (8-23); Calcium 8.4 mg/dL (8.6-10.3); Carbon Dioxide 27 mEq/L (23-29); Chloride 108 mEq/L (98-107); Glucose 103 mg/dL (70-105); Osmolality,Calculated 293 (280-300); Potassium 3.9 mEq/L (3.5-5.1); Sodium 140 mEq/L (136-145); Total Protein 5.3 g/dL (6.4-8.9); eGFR For African Americans > 60 (> 60); eGFR For Non-African Americans > 60 (> 60)
[2017-09-08] MEDS: *HR* Heparin 5,000 UNIT/ML VIAL SQ SCH ×2 (06:31→17:07)
[2017-09-08] MEDS: Aspirin Enteric Coated 81 MG Tablet PO SCH (08:13)
[2017-09-08] MEDS: *HR* Ticagrelor 90 MG TABLET PO SCH ×2 (08:14→20:26)
[2017-09-08] MEDS: Finasteride 5 MG TABLET PO SCH (08:15)
[2017-09-08] MEDS: predniSONE 5 MG TABLET PO SCH ×2 (08:15→20:26)
[2017-09-08] MEDS: Benzonatate 100 MG CAPSULE PO SCH ×3 (08:16→20:26)
[2017-09-08] MEDS: Metoprolol XL (24 HR) Succ 25 MG TAB.ER.24H PO SCH (08:16)
[2017-09-08] MEDS: GuaiFENesin/Dextromethorphan TABLET PO SCH ×2 (08:18→20:26)
--- NOTE | 2017-09-08 16:33 | Internal Med Progress Note ---
Date of Encounter: 09/08/17 Time of Encounter: 16:30 - Assessment and plan (1) HCAP (healthcare-associated pneumonia) Current Visit: Yes Status: Acute Assessment and plan: 82/male Admitted with a stable right lower lobe pneumonia. Recent hospitalization for chest pain/coronary artery disease/obstructed LAD with 95% blockage /underwent PCI Patient was evaluated in the urgent care and noted that patient's blood pressure 100 systolic. Patient was transferred to emergency room. Initial workup showed right lower lobe pneumonia with a lactic acid of 2.2. Plan: Will continue present antibiotics for another 24 hours. Blood culture negative then we will the deaccelerate antibiotics. Close monitoring of the vital signs. 09/06/2017 Today patient is more comfortable. Patient is not using any accessory muscles of respiration. Has occasional cough but able to sleep last night. Blood cultures negative so far. Antibiotics: Vancomycin/Zosyn/levofloxacin: Day 2 Plan: Blood cultures are negative by tomorrow, we will discontinue vancomycin. Will continue rest of the treatment for now. 09/07/2017 Blood culture negative: 48 hours: Will discontinue vancomycin. Patient's hydration is adequate: We will discontinue IV fluids. Noted that patient has a positive PCR for human metapneumovirus. Plan: Will continue present treatment for a while. Possibly oral antibiotics tomorrow and then home. Recommended patient to walk around the hallway. 09/08/2017 Patient denies fever, shortness of breath, nausea, vomiting, abdominal pain, dizziness and diarrhea. Occasional cough noted. He does not have any accessory muscles of respiration in use. We discontinued vancomycin yesterday. We will continue Zosyn/levofloxacin today. Tomorrow we will switch to oral levofloxacin and patient can go home. I suggested patient can go home today but he prefers to stay 1 more day just to make sure that his cough gets better. (2) CAD (coronary artery disease) Current Visit: No Status: Acute Assessment and plan: Recent PCI as mentioned above. We will continue DAPT/beta alison and statin 09/06/2017 Stable coronary artery disease. Denies any chest pain. Patient has appointment to see cardiology coming Monday. Qualifiers: Coronary Disease-Associated Artery/Lesion type: [place] artery [place] vs. transplanted heart: [place] heart Associated angina: with unstable angina Qualified Code(s): I25.110 - Atherosclerotic heart disease of [place] coronary artery with unstable angina pectoris (3) CLL (chronic lymphocytic leukemia) Current Visit: No Status: Chronic Assessment and plan: We will resume home medication. (4) Prostate cancer Current Visit: No Status: Chronic Assessment and plan: We will resume home medication. (5) DVT prophylaxis Current Visit: Yes Status: Acute Assessment and plan: Heparin Medical decision making: This patient has a moderate to severe risk of worsening in spite of being on appropriate treatment due to the underlying complex medical comorbid conditions Spoke to patient's family at length regarding course of disease and prognosis. Plan explained. All questions answered - Subjective Interval history: Patient seen and examined. Chart reviewed. Patient is comfortably lying in the bed. Patient denies chest pain, shortness of breath, nausea, dizziness, diarrhea and vomiting. 09/06/2017 Patient seen and examined. Chart reviewed. Patient's daughter is at bedside. Patient has occasional cough. Patient denies chest pain, nausea, vomiting, abdominal pain, dizziness and diarrhea. 09/07/2017 Patient seen and examined. Chart reviewed. Patient is comfortably lying in bed. Denies chest pain, nausea, vomiting, abdominal pain, dizziness and diarrhea. 09/08/2017 Patient seen and examined. Chart reviewed. Patient is comfortably lying in bed. Patient claims that he had an occasional cough last night and was not able to sleep well. Patient feels tired but denies chest pain, shortness of breath, nausea, abdominal pain, dizziness and diarrhea. - Constitutional Vitals: Temp Pulse Resp BP Pulse Ox 98.2 F 50 15 116/58 98 09/08/17 15:00 09/08/17 15:00 09/08/17 15:00 09/08/17 15:00 09/08/17 15:00 General appearance: Present: A&O X 3, no acute distress, answers questions appropriately - Head Head exam: Present: atraumatic, normocephalic - Eye Eye exam: Present: PERRL, conjuntiva pink, sclera anicteric Pupils: Present: PERRL - Neck Neck exam general surgery: Present: supple, trachea midline. Absent: lymphadenopathy - Respiratory Respiratory exam: Present: CTAB. Absent: accessory muscle use, rales, rhonchi, wheezes - Cardiovascular Cardiovascular exam: Present: RRR, +S1, +S2. Absent: diastolic murmur, gallop, rubs, systolic murmur - GI/Abdominal GI/Abdominal exam: Present: normal bowel sounds, soft, no peritoneal signs. Absent: distended, tenderness - Extremities Exam Extremities exam: Present: warm, radial pulses palpable and symmetrical. Absent : calf tenderness, cyanotic, pedal edema - Neurological Exam Neurological exam: Present: CN II-XII intact, oriented X3, no focal deficits. Absent: pronater drift, facial droop, speech deficit - Skin Skin exam: Present: dry, intact Internal Medicine: Result - Labs CBC & Chem 7: 09/08/17 04:25 09/08/17 04:25 Labs: Short CBC 09/08/17 Range/Units 04:25 WBC 10.2 (4.3-11.1) K/mcL Hgb 12.8 L (12.9-16.9) g/dL Hct 39.8 (37.5-50.1) % Plt Count 153 (140-400) K/mcL Neutrophils # 4.0 (1.6-8.9) K/mcL BMP 09/08/17 04:25 Sodium 140 Potassium 3.9 Chloride 108 H Carbon Dioxide 27 BUN 21 Creatinine 0.87 Glucose 103 Calcium 8.4 L Liver Function 09/08/17 Range/Units 04:25 Total Bilirubin 1.0 (0.3-1.0) mg/dL AST 14 (13-39) Units/L ALT 11 (7-52) Units/L Alkaline Phosphatase 70 (34-104) Units/L Albumin 3.3 L (3.5-5.7) g/dL - VTE Documentation of Mechanical Device: Intermittent pneumatic compression device Consult Discharge Plan - Plan Referrals: Hector Dunn MD [Primary Care Provider] -
[2017-09-08] MEDS ORDERED: levoFLOXacin 750 MG TABLET PO SCH (21:00)
[2017-09-09] MEDS: *HR* Heparin 5,000 UNIT/ML VIAL SQ SCH (05:19)
[2017-09-09 07:11] VITALS: BP 144/79
[2017-09-09] MEDS: Finasteride 5 MG TABLET PO SCH (08:59)
[2017-09-09] MEDS: Benzonatate 100 MG CAPSULE PO SCH (08:59)
[2017-09-09] MEDS: Aspirin Enteric Coated 81 MG Tablet PO SCH (08:59)
[2017-09-09] MEDS: predniSONE 5 MG TABLET PO SCH (08:59)
[2017-09-09] MEDS: GuaiFENesin/Dextromethorphan TABLET PO SCH (09:00)
[2017-09-09] MEDS: *HR* Ticagrelor 90 MG TABLET PO SCH (09:00)
[2017-09-09] MEDS: Metoprolol XL (24 HR) Succ 25 MG TAB.ER.24H PO SCH (09:00)
--- NOTE | 2017-09-09 10:27 | Discharge Summary ---
Date of Encounter: 09/10/17 Time of Encounter: 10:23 - Discharge Diagnosis (1) HCAP (healthcare-associated pneumonia) Priority: Primary Status: Acute (2) CAD (coronary artery disease) Priority: Primary Status: Acute Qualifiers: Coronary Disease-Associated Artery/Lesion type: [place] artery [place] vs. 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 (4) Prostate cancer Priority: Secondary Status: Chronic (5) DVT prophylaxis Priority: Secondary Status: Acute - Discharge Medications Prescriptions: Benzonatate [Tessalon] 100 mg PO TID #14 capsule levoFLOXacin [Levaquin] 750 mg PO HS #4 tablet Home Medications: Aspirin Enteric Coated [Aspirin EC] 81 mg PO DAILY 03/12/15 [History] Atorvastatin Calcium [Lipitor] 20 mg PO DAILY 03/12/15 [History] Alfuzosin HCl [Uroxatral] 10 mg PO DAILY 05/05/15 [History] Finasteride [Proscar] 5 mg PO DAILY 05/05/15 [History] Metoprolol XL (24 HR) Succ [Toprol Xl] 25 mg PO DAILY #30 tab.er.24h 08/23/17 [ Rx] Nitroglycerin 0.4 mg SL Q5MIN PRN #5 tab.subl 08/23/17 [Rx] Ticagrelor [Brilinta] 90 mg PO BID #60 tablet 08/23/17 [Rx] Abiraterone Acetate [Zytiga] 1,000 mg PO 0630 09/04/17 [History] GuaiFENesin/Dextromethorphan [Mucinex Dm] 1 each PO Q6H 09/04/17 [History] Lisinopril [Zestril] 5 mg PO QPM PRN 09/04/17 [History] predniSONE [PredniSONE] 5 mg PO BID 09/04/17 [History] Benzonatate [Tessalon] 100 mg PO TID #14 capsule 09/09/17 [Rx] levoFLOXacin [Levaquin] 750 mg PO HS #4 tablet 09/09/17 [Rx] Allergies/Adverse Reactions: 3 Allergy/AdvReac Type Severity Reaction Status Date / Time No Known Allergies Allergy Verified 06/22/17 13:11 Date of admission: 09/05/17 18:49 Primary care physician: Hector Dunn Consults: 09/07/17 13:47 Consult to Physical Therapy [CONS] Routine Comment: Evaluate, develop and implement POC Reason for Consult: patient been primarily bed bound since monday, want to eval strength OT [Consult to Occupational Therapy] [CONS] Routine Comment: Evaluate, develop and implement POC Reason for Consult: pt has been primarily bed bound since monday, want to eval strength Discharging clinician: Jayjay Monique - Patient Status Disposition: Home, Self-Care Condition: Fair Functional capacity at discharge: independent ambulation Overall status at discharge: patient is progressing back to baseline - Discharge Instructions Instructions: Benzonatate (By mouth), Levofloxacin (By mouth), Chest Pain (DC) , Pneumonia (DC) Follow Up With: Hector Dunn MD [Primary Care Provider] - (Please call monday to make an appointment for 5-[address] after discharge. Per Dr. Monique's suggestion, request a primary care physician (Internal medicine) in that same office to take over your care.) Additional Instructions: As tolerated. - Diet and Activity Activity: increase activity as tolerated Diet: low fat, low cholesterol, low salt diet Interval History: Mr. Fan is a 82 year old male with history of prostate cancer, CAD S/P stent, presented to ER for cough and fatigue and dizziness for 1-2 days. Patient has recently been hospitalized for LHC and stenting. Patient said he has cough with clear sputum. Cough can be controlled by Robitussin. Patient denies a fever. Patient denies any runny nose. Patient has no chest pain. In emergency room, CXR shows RLL pneumonia. Patient denies shortness of breath. Patient was admitted for HCAP. Hospital course: Patient was hospitalized. He was started on vancomycin/Zosyn/levofloxacin. Blood cultures were drawn. Initial blood cultures were negative for 48 hours and vancomycin was discontinued. His respiratory infection and was suggestive of human metapneumo virus infection. In view of multiple comorbid conditions and immunosuppressive medications it was decided to treat for possible superadded bacterial infection. Patient tolerated antibiotics extremely well. After 72 hours of blood culture negative, it was decided to make all antibiotics orally. Patient was started on levofloxacin which he tolerated well. Upon discharge patient was given a prescription of levofloxacin but pharmacy has some issue in terms of drug drug interaction and hence it was changed to Augmentin. At the time of discharge patient does not have any questions, concerns, update or recommendation. Patient will see his primary care doctor in next 1 week. Patient has an appointment with oncology/cardiology in upcoming week. all QUESTIONS answered. - Time Spent with Patient Total time spent providing and/or coordinating discharge services: - Constitutional Vitals: Temp Pulse Resp BP Pulse Ox 98.1 F 59 15 144/79 95 09/09/17 07:10 09/09/17 07:10 09/09/17 07:10 09/09/17 07:10 09/09/17 07:10 General appearance: Present: A&O X 3, no acute distress, answers questions appropriately - Head Head exam: Present: atraumatic, normocephalic - Eye Eye exam: Present: PERRL, conjuntiva pink, sclera anicteric Pupils: Present: PERRL - Neck Neck exam general surgery: Present: supple, trachea midline. Absent: lymphadenopathy - Respiratory Respiratory exam: Present: CTAB. Absent: accessory muscle use, rales, rhonchi, wheezes - Cardiovascular Cardiovascular exam: Present: RRR, +S1, +S2. Absent: diastolic murmur, gallop, rubs, systolic murmur - GI/Abdominal GI/Abdominal exam: Present: normal bowel sounds, soft, no peritoneal signs. Absent: distended, tenderness - Extremities Exam Extremities exam: Present: warm, radial pulses palpable and symmetrical. Absent : calf tenderness, cyanotic, pedal edema - Neurological Exam Neurological exam: Present: CN II-XII intact, oriented X3, no focal deficits. Absent: pronater drift, facial droop, speech deficit - Skin Skin exam: Present: dry, intact - VTE Documentation of Mechanical Device: Intermittent pneumatic compression device
== END 2017-09-09 11:20 | disposition home or self-care (01) | DRG 194 ==
LOC: EMEROO 17:46 → 3BNU 17:46 → SUATTDRO 21:17 → 3BNU 22:32 → 2NENU 09-05 18:37
PROVIDERS: ADMIT Internal Medicine; ATTEND Internal Medicine

== ENCOUNTER 2019-10-08 08:36 | Inpatient (IN) ==
[2019-10-08] MEDS ORDERED: Famotidine 20 MG/2 ML VIAL IVP ONE (08:57)
[2019-10-08] MEDS ORDERED: Ondansetron 4 MG/2 ML VIAL IVP ONE (08:57)
[2019-10-08] MEDS ORDERED: 0.9 % Sodium Chloride 1,000 ML IVC ONE (08:57)
[2019-10-08 09:43] LABS: Basophils % 0.3 %; Eosinophils # 0.1 K/mcL (0.0-0.6); Hematocrit 44.6 % (37.5-50.1); Hemoglobin 14.3 g/dL (12.9-16.9); Immature Granulocytes % 0.3 % (0-4); Lymphocytes # 3.2 K/mcL (0.6-4.6); Lymphocytes % 40.6 %; Mean Corpuscular HGB Conc 32.1 g/dL (31.6-35.5); Mean Corpuscular Hemoglobin 28.7 pg (28.0-33.3); Mean Corpuscular Volume 89.6 fL (83.0-100.0); Mean Platelet Volume 10.1 fL (9.4-12.4); Monocytes # 0.4 K/mcL (0.0-1.3); Monocytes % 5.3 %; Neutrophils # 4.1 K/mcL (1.6-8.9); Platelet Count 139 K/mcL (140-400); Red Blood Count 4.98 M/mcL (4.19-5.50); Red Cell Distribution Width 13.1 % (11.5-14.5); Segmented Neutrophils % 52.5 %; White Blood Count 7.8 K/mcL (4.3-11.1)
[2019-10-08 10:07] LABS: Alanine Aminotransferase 13 Units/L (7-52); Albumin 3.9 g/dL (3.5-5.7); Albumin/Globulin Ratio 1.9 (1.1-2.2); Alkaline Phosphatase 67 Units/L (34-104); Aspartate Amino Transferase 16 Units/L (13-39); BUN/Creatinine Ratio 21 (6-26); Bilirubin,Total 1.9 mg/dL (0.3-1.0); Blood Urea Nitrogen 16 mg/dL (8-23); Calcium 9.1 mg/dL (8.6-10.3); Carbon Dioxide 25 mEq/L (23-29); Chloride 107 mEq/L (98-107); Globulin 2.1 g/dL (2.4-3.5); Glucose 155 mg/dL (70-105); Lipase 24 Units/L (11-82); Osmolality,Calculated 294 (280-300); Potassium 3.6 mEq/L (3.5-5.1); Sodium 140 mEq/L (136-145); Troponin I < 0.03 ng/mL (< 0.04); eGFR For African Americans > 60 (> 60); eGFR For Non-African Americans > 60 (> 60)
[2019-10-08] MEDS ORDERED: Metoclopramide 10 MG/2 ML VIAL IVP ONE (10:13)
[2019-10-08 10:21] LABS: Bilirubin,Urine Negative (Negative); Blood,Urine Negative (Negative); Color,Urine Yellow (Yellow); Glucose,Urine (UA) Normal (Normal); Ketones,Urine Negative (Negative); Leukocyte Esterase,Urine Negative (Negative); Nitrite,Urine Negative (Negative); PH,Urine 6.5 pH Units (5.0-8.0); Protein,Urine Negative (Neg-Trace); Specific Gravity,Urine 1.017 (1.010-1.025); Urobilinogen,Urine Normal (Normal)
[2019-10-08 10:22] LABS: Clarity,Urine Clear (Clear)
[2019-10-08] MEDS ORDERED: Naloxone 0.4 MG/ML INJ IVP PRN (11:43)
[2019-10-08] MEDS: Benzonatate 100 MG CAPSULE PO PRN ×2 (12:32→20:17)
[2019-10-08] MEDS: Metoprolol XL (24 HR) Succ 25 MG TAB.ER.24H PO SCH (12:32)
[2019-10-08] MEDS: Acetaminophen 325 MG TABLET PO PRN (12:32)
[2019-10-08] MEDS: *HR* Heparin 5,000 UNIT/ML VIAL SQ SCH ×2 (12:33→20:18)
[2019-10-08] MEDS: Ringers Solution, Lactated 1,000 ML IVC SCH (12:33)
[2019-10-08] MEDS ORDERED: Nitroglycerin 0.4 MG TAB.SUBL SL PRN (12:46)
[2019-10-08] MEDS: Ondansetron ODT 4 MG TAB.RAPDIS SL PRN (20:17)
[2019-10-09] MEDS: Ringers Solution, Lactated 1,000 ML IVC SCH ×2 (02:38→15:40)
[2019-10-09] MEDS: Ondansetron ODT 4 MG TAB.RAPDIS SL PRN (05:42)
[2019-10-09] MEDS: *HR* Heparin 5,000 UNIT/ML VIAL SQ SCH ×3 (05:42→21:34)
[2019-10-09] MEDS: Acetaminophen 325 MG TABLET PO PRN ×2 (05:42→21:32)
[2019-10-09] MEDS: Benzonatate 100 MG CAPSULE PO PRN ×3 (05:42→21:33)
[2019-10-09] MEDS: Aspirin Enteric Coated 81 MG Tablet PO SCH (08:19)
[2019-10-09] MEDS: Metoprolol XL (24 HR) Succ 25 MG TAB.ER.24H PO SCH (08:19)
[2019-10-09] MEDS: Ipratropium/Albuterol Neb 3 ML IH SCH ×3 (12:07→19:45)
[2019-10-09] MEDS: GuaiFENesin/Codeine Oral Soln 5 ML UDC PO PRN (12:35)
[2019-10-09] MEDS: Ondansetron 4 MG/2 ML VIAL IVP PRN ×2 (14:58→21:32)
[2019-10-10] MEDS: Ipratropium/Albuterol Neb 3 ML IH SCH ×5 (00:02→22:16)
[2019-10-10] MEDS: *HR* Heparin 5,000 UNIT/ML VIAL SQ SCH ×3 (04:45→19:58)
[2019-10-10] MEDS: Ringers Solution, Lactated 1,000 ML IVC SCH ×2 (04:45→22:50)
[2019-10-10] MEDS: Aspirin Enteric Coated 81 MG Tablet PO SCH (09:24)
[2019-10-10] MEDS: Metoprolol XL (24 HR) Succ 25 MG TAB.ER.24H PO SCH (09:24)
[2019-10-10] MEDS: Acetaminophen 325 MG TABLET PO PRN ×2 (09:34→17:23)
[2019-10-10] MEDS: Benzonatate 100 MG CAPSULE PO PRN (17:23)
[2019-10-10] MEDS: GuaiFENesin/Codeine Oral Soln 5 ML UDC PO PRN (22:50)
[2019-10-11] MEDS: Ipratropium/Albuterol Neb 3 ML IH SCH ×2 (04:31→10:20)
[2019-10-11] MEDS: GuaiFENesin/Codeine Oral Soln 5 ML UDC PO PRN (06:16)
[2019-10-11] MEDS: *HR* Heparin 5,000 UNIT/ML VIAL SQ SCH (06:16)
[2019-10-11] MEDS ORDERED: predniSONE 5 MG TABLET PO SCH (08:00)
[2019-10-11] MEDS: Metoprolol XL (24 HR) Succ 25 MG TAB.ER.24H PO SCH (08:07)
[2019-10-11] MEDS: Aspirin Enteric Coated 81 MG Tablet PO SCH (08:08)
[2019-10-11 10:00] VITALS: BP 130/70
== END 2019-10-11 11:37 | DRG 193 ==
LOC: EMEROOARM 08:36 → 3BNU 08:36 → SUATTDRO 11:17 → 3BNU 11:41
PROVIDERS: ADMIT Internal Medicine; ATTEND Internal Medicine

== ENCOUNTER 2020-01-07 19:06 | Inpatient (IN) ==
[2020-01-07 19:41] LABS: Basophils % 0.1 %; Eosinophils # 0.2 K/mcL (0.0-0.6); Eosinophils % 1.1 %; Hematocrit 48.6 % (37.5-50.1); Hemoglobin 15.8 g/dL (12.9-16.9); Immature Granulocytes % 0.3 % (0-4); Lymphocytes # 6.3 K/mcL (0.6-4.6); Lymphocytes % 47.4 %; Mean Corpuscular HGB Conc 32.5 g/dL (31.6-35.5); Mean Corpuscular Hemoglobin 29.1 pg (28.0-33.3); Mean Corpuscular Volume 89.5 fL (83.0-100.0); Mean Platelet Volume 10.5 fL (9.4-12.4); Monocytes # 0.7 K/mcL (0.0-1.3); Neutrophils # 6.1 K/mcL (1.6-8.9); Platelet Count 227 K/mcL (140-400); Red Blood Count 5.43 M/mcL (4.19-5.50); Red Cell Distribution Width 13.4 % (11.5-14.5); Segmented Neutrophils % 46.1 %; White Blood Count 13.3 K/mcL (4.3-11.1)
[2020-01-07 19:44] LABS: Prothrombin Time 11.3 Seconds (9.4-12.1)
[2020-01-07 19:46] LABS: Activated Partial Thrombo Time 29.9 Seconds (26.0-36.0)
[2020-01-07 20:03] LABS: BUN/Creatinine Ratio 32 (6-26); Blood Urea Nitrogen 31 mg/dL (8-23); Calcium 9.9 mg/dL (8.6-10.3); Carbon Dioxide 23 mEq/L (23-29); Chloride 108 mEq/L (98-107); Glucose 125 mg/dL (70-105); Osmolality,Calculated 298 (280-300); Sodium 140 mEq/L (136-145); Troponin I < 0.03 ng/mL (< 0.04); eGFR For African Americans > 60 (> 60); eGFR For Non-African Americans > 60 (> 60)
[2020-01-07] MEDS ORDERED: Aspirin 81 MG TAB.CHEW ONE (21:06)
[2020-01-07] MEDS: Aspirin 81 MG TAB.CHEW PO SCH (21:06)
[2020-01-07] MEDS ORDERED: Ondansetron 4 MG/2 ML VIAL IVP PRN (21:32)
[2020-01-07] MEDS ORDERED: Naloxone 0.4 MG/ML INJ IVP PRN (21:32)
[2020-01-07] MEDS ORDERED: Acetaminophen 325 MG TABLET PO PRN (21:32)
[2020-01-07] MEDS ORDERED: Ipratropium/Albuterol Neb 3 ML IH PRN (21:35)
[2020-01-07] MEDS: *HR* Heparin 5,000 UNIT/ML VIAL SQ SCH (22:12)
[2020-01-08] MEDS: Artificial Tears SOLN 15 ML BOTTLE BOTH EYES SCH ×6 (00:28→21:54)
[2020-01-08 03:33] LABS: Prothrombin Time 11.5 Seconds (9.4-12.1)
[2020-01-08 03:50] LABS: BUN/Creatinine Ratio 30 (6-26); Blood Urea Nitrogen 30 mg/dL (8-23); Calcium 9.3 mg/dL (8.6-10.3); Carbon Dioxide 26 mEq/L (23-29); Chloride 109 mEq/L (98-107); Cholesterol 154 mg/dL (< 200); Glucose 126 mg/dL (70-105); HDL Cholesterol 31 mg/dL (40-59); LDL Cholesterol,Calculated 58 mg/dL (0-99); Magnesium 2.1 mg/dL (1.6-2.6); Osmolality,Calculated 300 (280-300); Potassium 3.6 mEq/L (3.5-5.1); Sodium 141 mEq/L (136-145); Triglycerides 325 mg/dL (< 150); eGFR For African Americans > 60 (> 60); eGFR For Non-African Americans > 60 (> 60)
[2020-01-08 04:49] LABS: Mean Corpuscular HGB Conc 32.8 g/dL (31.6-35.5)
[2020-01-08 04:51] LABS: Hematocrit 41.1 % (37.5-50.1); Hemoglobin 13.5 g/dL (12.9-16.9); Mean Corpuscular Hemoglobin 28.8 pg (28.0-33.3); Mean Corpuscular Volume 87.8 fL (83.0-100.0); Mean Platelet Volume 11.2 fL (9.4-12.4); Red Blood Count 4.68 M/mcL (4.19-5.50); Red Cell Distribution Width 13.5 % (11.5-14.5)
[2020-01-08] MEDS: *HR* Heparin 5,000 UNIT/ML VIAL SQ SCH ×3 (05:08→21:54)
[2020-01-08] MEDS: Aspirin Enteric Coated 81 MG Tablet PO SCH (07:42)
[2020-01-08] MEDS ORDERED: Abiraterone Acetate [Zytiga] 1,000 MG PO SCH (09:00)
[2020-01-08] MEDS ORDERED: Heparin 1,000 UNITS/500 mL 500 ML ONE (10:19)
[2020-01-08] MEDS ORDERED: 0.9 % Sodium Chloride 1,000 ML ONE ×2 (10:19→10:26)
[2020-01-08] MEDS ORDERED: *HR* Heparin 10,000 UNIT/10 ML VIAL ONE (10:20)
[2020-01-08] MEDS ORDERED: Nitroglycerin 1,000 MCG/10 ML VIAL IV ONE (10:20)
[2020-01-08] MEDS ORDERED: ISOVUE-370 200 ML INFUS..BTL ONE (10:20)
[2020-01-08] MEDS: Aspirin 81 MG TAB.CHEW PO SCH (10:31)
[2020-01-08] MEDS: lisinopriL 5 MG TABLET PO SCH (10:31)
[2020-01-08] MEDS ORDERED: *HR* Midazolam HCl 2 MG/2 ML VIAL ONE (10:42)
[2020-01-08] MEDS ORDERED: *HR* FentaNYL (PF) 100 MCG/2 ML VIAL ONE (10:42)
[2020-01-08] MEDS: ABIRATERONE ACETATE 250 MG PO SCH (15:38)
[2020-01-08] MEDS: predniSONE 5 MG TABLET PO SCH (15:39)
[2020-01-08] MEDS: amLODIPine 5 MG TABLET PO SCH (19:48)
[2020-01-09 06:43] VITALS: BP 123/68
[2020-01-09 06:43] LABS: BUN/Creatinine Ratio 29 (6-26); Blood Urea Nitrogen 23 mg/dL (8-23); Calcium 8.7 mg/dL (8.6-10.3); Carbon Dioxide 21 mEq/L (23-29); Chloride 110 mEq/L (98-107); Glucose 130 mg/dL (70-105); Magnesium 1.9 mg/dL (1.6-2.6); Osmolality,Calculated 295 (280-300); Phosphorous 2.9 mg/dL (2.7-4.5); Potassium 4.1 mEq/L (3.5-5.1); Sodium 140 mEq/L (136-145); eGFR For African Americans > 60 (> 60); eGFR For Non-African Americans > 60 (> 60)
[2020-01-09] MEDS: *HR* Heparin 5,000 UNIT/ML VIAL SQ SCH (06:57)
[2020-01-09] MEDS: Aspirin Enteric Coated 81 MG Tablet PO SCH (09:29)
[2020-01-09] MEDS: lisinopriL 5 MG TABLET PO SCH (09:29)
[2020-01-09] MEDS: amLODIPine 5 MG TABLET PO SCH (09:31)
[2020-01-09] MEDS: Artificial Tears SOLN 15 ML BOTTLE BOTH EYES SCH (09:35)
[2020-01-09] MEDS: ABIRATERONE ACETATE 250 MG PO SCH (09:45)
[2020-01-09] MEDS: predniSONE 5 MG TABLET PO SCH (09:46)
== END 2020-01-09 10:47 | disposition home or self-care (01) | DRG 287 ==
LOC: EMEROOARM 19:06 → 3BNU 19:06 → SUATTDRO 20:39 → 3BNU 21:15
PROVIDERS: ADMIT Student in an Organized Health Care Education/Training Program; ATTEND Internal Medicine

== ENCOUNTER 2021-10-03 19:12 | Observation (INO) ==
[2021-10-03] MEDS ORDERED: Isovue-370 500 ML BOTTLE IVP ONE (20:08)
[2021-10-03 20:18] LABS: Basophils % 0.2 %; Eosinophils # 0.1 K/mcL (0.0-0.6); Eosinophils % 1.2 %; Hematocrit 46.2 % (37.5-50.1); Immature Granulocytes % 0.2 % (0-4); Lymphocytes % 58.3 %; Mean Corpuscular HGB Conc 32.5 g/dL (31.6-35.5); Mean Corpuscular Hemoglobin 29.6 pg (28.0-33.3); Mean Corpuscular Volume 91.3 fL (83.0-100.0); Mean Platelet Volume 10.7 fL (9.4-12.4); Monocytes # 0.5 K/mcL (0.0-1.3); Monocytes % 4.2 %; Neutrophils # 4.3 K/mcL (1.6-8.9); Platelet Count 224 K/mcL (140-400); Red Blood Count 5.06 M/mcL (4.19-5.50); Red Cell Distribution Width 13.3 % (11.5-14.5); Segmented Neutrophils % 35.9 %
[2021-10-03 20:33] LABS: BUN/Creatinine Ratio 26 (6-26); Blood Urea Nitrogen 24 mg/dL (8-23); Calcium 10.2 mg/dL (8.6-10.3); Carbon Dioxide 29 mEq/L (23-29); Chloride 102 mEq/L (98-107); Glucose 171 mg/dL (70-105); Lipase 45 Units/L (11-82); Osmolality,Calculated 296 (280-300); Sodium 139 mEq/L (136-145); Troponin I < 0.03 ng/mL (< 0.04); eGFR For African Americans > 60 (> 60); eGFR For Non-African Americans > 60 (> 60)
[2021-10-03 20:40] LABS: Platelet Estimate Normal (Normal)
[2021-10-03] MEDS ORDERED: Morphine Sulfate 2 MG/ML SYRINGE IVP ONE (20:51)
[2021-10-03] MEDS ORDERED: Aspirin 325 MG TABLET PO ONE (20:52)
[2021-10-03] MEDS ORDERED: Melatonin 3 MG TABLET PO PRN (23:40)
[2021-10-03] MEDS ORDERED: Naloxone 0.4 MG/ML INJ IVP PRN (23:40)
[2021-10-04 04:51] LABS: Hematocrit 42.8 % (37.5-50.1); Hemoglobin 13.7 g/dL (12.9-16.9); Mean Corpuscular Hemoglobin 29.3 pg (28.0-33.3); Mean Corpuscular Volume 91.5 fL (83.0-100.0); Mean Platelet Volume 10.1 fL (9.4-12.4); Platelet Count 164 K/mcL (140-400); Red Blood Count 4.68 M/mcL (4.19-5.50); Red Cell Distribution Width 13.3 % (11.5-14.5); White Blood Count 10.9 K/mcL (4.3-11.1)
[2021-10-04 05:17] LABS: BUN/Creatinine Ratio 24 (6-26); Blood Urea Nitrogen 22 mg/dL (8-23); Calcium 9.6 mg/dL (8.6-10.3); Carbon Dioxide 29 mEq/L (23-29); Chloride 107 mEq/L (98-107); Glucose 122 mg/dL (70-105); Magnesium 2.1 mg/dL (1.6-2.6); Osmolality,Calculated 299 (280-300); Potassium 4.5 mEq/L (3.5-5.1); Sodium 142 mEq/L (136-145); eGFR For African Americans > 60 (> 60); eGFR For Non-African Americans > 60 (> 60)
[2021-10-04] MEDS: *HR* Heparin 5,000 UNIT/ML VIAL SQ SCH ×2 (05:17→17:40)
[2021-10-04] MEDS ORDERED: Regadenoson 0.4 MG/5 ML SYRINGE IVP ONE (06:29)
[2021-10-04] MEDS: lisinopriL 5 MG TABLET PO SCH (08:44)
[2021-10-04] MEDS: predniSONE 5 MG TABLET PO SCH (08:44)
[2021-10-04] MEDS: Aspirin Enteric Coated 81 MG Tablet PO SCH (08:44)
[2021-10-04] MEDS ORDERED: (Abiraterone Acetate [Zytiga] 250 MG Tablet) PO SCH ×3 (09:00→09:30)
[2021-10-04] MEDS ORDERED: amLODIPine 5 MG TABLET PO SCH (09:00)
[2021-10-04] MEDS ORDERED: Perflutren Lipid Microsphere 1.3 ML in 0.9 % Sodium Chloride 8.7 ML IVP PRN (10:57)
[2021-10-05 01:10] LABS: Basophils % 0.2 %; Eosinophils # 0.1 K/mcL (0.0-0.6); Eosinophils % 1.4 %; Hematocrit 43.8 % (37.5-50.1); Hemoglobin 14.2 g/dL (12.9-16.9); Immature Granulocytes % 0.4 % (0-4); Lymphocytes # 5.1 K/mcL (0.6-4.6); Lymphocytes % 50.4 %; Mean Corpuscular HGB Conc 32.4 g/dL (31.6-35.5); Mean Corpuscular Hemoglobin 29.3 pg (28.0-33.3); Mean Corpuscular Volume 90.5 fL (83.0-100.0); Mean Platelet Volume 10.6 fL (9.4-12.4); Monocytes # 0.5 K/mcL (0.0-1.3); Monocytes % 5.2 %; Neutrophils # 4.3 K/mcL (1.6-8.9); Platelet Count 182 K/mcL (140-400); Red Blood Count 4.84 M/mcL (4.19-5.50); Red Cell Distribution Width 13.2 % (11.5-14.5); Segmented Neutrophils % 42.4 %; White Blood Count 10.1 K/mcL (4.3-11.1)
[2021-10-05 01:29] LABS: BUN/Creatinine Ratio 24 (6-26); Blood Urea Nitrogen 23 mg/dL (8-23); Calcium 9.5 mg/dL (8.6-10.3); Carbon Dioxide 24 mEq/L (23-29); Chloride 106 mEq/L (98-107); Glucose 162 mg/dL (70-105); Osmolality,Calculated 293 (280-300); Sodium 138 mEq/L (136-145); eGFR For African Americans > 60 (> 60); eGFR For Non-African Americans > 60 (> 60)
[2021-10-05 01:30] LABS: Albumin 3.8 g/dL (3.5-5.7); Albumin/Globulin Ratio 1.9 (1.1-2.2); Bilirubin,Direct 0.2 mg/dL (0.0-0.2); Bilirubin,Indirect 1.3 mg/dL (0.0-1.0); Bilirubin,Total 1.5 mg/dL (0.3-1.0); Total Protein 5.8 g/dL (6.4-8.9)
[2021-10-05] MEDS: *HR* Heparin 5,000 UNIT/ML VIAL SQ SCH (05:34)
[2021-10-05] MEDS ORDERED: (Abiraterone Acetate [Zytiga] 250 MG Tablet) PO SCH (06:00)
[2021-10-05] MEDS: lisinopriL 5 MG TABLET PO SCH (07:45)
[2021-10-05] MEDS: Aspirin Enteric Coated 81 MG Tablet PO SCH (07:45)
[2021-10-05] MEDS: predniSONE 5 MG TABLET PO SCH (07:45)
[2021-10-05] MEDS ORDERED: amLODIPine 5 MG TABLET PO SCH (09:00)
[2021-10-05 10:19] VITALS: BP 139/78; PULSE 60; TEMP 98; O2SAT 94
== END 2021-10-05 16:49 | disposition home or self-care (01) ==
LOC: EMEROOARM 19:12 → 2ANU 19:12 → SUATTDRO 22:56 → 2ANU 23:50
PROVIDERS: ADMIT Internal Medicine; ATTEND Student in an Organized Health Care Education/Training Program

== ENCOUNTER 2022-01-08 19:06 | Observation (INO) ==
[2022-01-08 19:34] LABS: Eosinophils # 0.2 K/mcL (0.0-0.6); Hematocrit 44.2 % (37.5-50.1); Hemoglobin 14.5 g/dL (12.9-16.9); Mean Corpuscular HGB Conc 32.8 g/dL (31.6-35.5); Mean Corpuscular Hemoglobin 29.5 pg (28.0-33.3); Mean Platelet Volume 10.1 fL (9.4-12.4); Platelet Count 181 K/mcL (140-400); Red Blood Count 4.91 M/mcL (4.19-5.50); Red Cell Distribution Width 13.2 % (11.5-14.5); White Blood Count 10.5 K/mcL (4.3-11.1)
[2022-01-08 19:56] LABS: BUN/Creatinine Ratio 22 (6-26); Blood Urea Nitrogen 20 mg/dL (8-23); Calcium 9.6 mg/dL (8.6-10.3); Carbon Dioxide 27 mEq/L (23-29); Chloride 105 mEq/L (98-107); Glucose 153 mg/dL (70-105); Osmolality,Calculated 296 (280-300); Sodium 140 mEq/L (136-145); eGFR For African Americans > 60 (> 60); eGFR For Non-African Americans > 60 (> 60)
[2022-01-08 19:57] LABS: Troponin I < 0.03 ng/mL (< 0.04)
[2022-01-08 20:01] LABS: Lymphocytes # 4.4 K/mcL (0.6-4.6); Monocytes # 0.4 K/mcL (0.0-1.3); Neutrophils # 5.5 K/mcL (1.6-8.9); Platelet Estimate Normal (Normal); Reactive Lymphocytes Present (Not Present); Smudge Cells Present (Not Present)
[2022-01-08] MEDS ORDERED: Isovue-370 500 ML BOTTLE IVP ONE (20:36)
[2022-01-08] MEDS ORDERED: Melatonin 3 MG TABLET PO PRN (20:46)
[2022-01-08] MEDS ORDERED: Naloxone 0.4 MG/ML INJ IVP PRN (20:46)
[2022-01-08] MEDS ORDERED: Ondansetron ODT 4 MG TAB.RAPDIS SL PRN (20:46)
[2022-01-08] MEDS: Loratadine 10 MG TABLET PO SCH (23:07)
[2022-01-08] MEDS: Fluticasone Propionate Nasal 50 MCG/SPRAY BOTTLE NS SCH (23:08)
[2022-01-09] MEDS: Ampicillin/Sulbactam 3,000 MG in 0.9 % Sodium Chloride Mini Bag 100 ML IVPB SCH ×3 (00:31→12:01)
[2022-01-09] MEDS: Lactobacillus 1 EACH CAP.SPRINK PO SCH ×3 (00:31→21:41)
[2022-01-09 02:53] LABS: Basophils % 0.2 %; Eosinophils # 0.2 K/mcL (0.0-0.6); Eosinophils % 2.1 %; Hematocrit 39.8 % (37.5-50.1); Immature Granulocytes % 0.3 % (0-4); Mean Corpuscular HGB Conc 32.4 g/dL (31.6-35.5); Mean Corpuscular Hemoglobin 29.1 pg (28.0-33.3); Mean Corpuscular Volume 89.6 fL (83.0-100.0); Mean Platelet Volume 10.1 fL (9.4-12.4); Monocytes # 0.5 K/mcL (0.0-1.3); Monocytes % 4.7 %; Neutrophils # 3.3 K/mcL (1.6-8.9); Platelet Count 155 K/mcL (140-400); Red Blood Count 4.44 M/mcL (4.19-5.50); Red Cell Distribution Width 13.3 % (11.5-14.5); Segmented Neutrophils % 32.7 %
[2022-01-09 02:59] LABS: Prothrombin Time 11.4 Seconds (9.4-12.1)
[2022-01-09 03:03] LABS: Hemoglobin 12.9 g/dL (12.9-16.9)
[2022-01-09 03:14] LABS: Alanine Aminotransferase 14 Units/L (7-52); Albumin 3.7 g/dL (3.5-5.7); Albumin/Globulin Ratio 2.2 (1.1-2.2); Alkaline Phosphatase 58 Units/L (34-104); Aspartate Amino Transferase 15 Units/L (13-39); BUN/Creatinine Ratio 22 (6-26); Bilirubin,Total 1.2 mg/dL (0.3-1.0); Blood Urea Nitrogen 20 mg/dL (8-23); Calcium 9.3 mg/dL (8.6-10.3); Carbon Dioxide 27 mEq/L (23-29); Chloride 107 mEq/L (98-107); Globulin 1.7 g/dL (2.4-3.5); Glucose 135 mg/dL (70-105); Osmolality,Calculated 297 (280-300); Phosphorous 3.8 mg/dL (2.7-4.5); Potassium 4.2 mEq/L (3.5-5.1); Sodium 141 mEq/L (136-145); Total Protein 5.4 g/dL (6.4-8.9); eGFR For African Americans > 60 (> 60); eGFR For Non-African Americans > 60 (> 60)
[2022-01-09 03:15] LABS: Chol/HDL Ratio 3.6 (0-4.9); Cholesterol 122 mg/dL (< 200); HDL Cholesterol 34 mg/dL (40-59); LDL Cholesterol,Calculated 48 mg/dL (< 100); Triglycerides 198 mg/dL (< 150); Troponin I < 0.03 ng/mL (< 0.04)
[2022-01-09 03:30] LABS: Platelet Estimate Normal (Normal); Smudge Cells Present (Not Present)
[2022-01-09] MEDS: (Abiraterone Acetate [Zytiga] 250 MG Tablet) PO SCH (06:08)
[2022-01-09] MEDS: *HR* Heparin 5,000 UNIT/ML VIAL SQ SCH ×2 (06:09→17:06)
[2022-01-09] MEDS: predniSONE 5 MG TABLET PO SCH (06:11)
[2022-01-09] MEDS: Sennosides 8.6 MG TABLET PO SCH (08:27)
[2022-01-09] MEDS: Isosorbide MONOnitrate (24 HR) 30 MG TAB.ER.24H PO SCH (08:27)
[2022-01-09] MEDS: Fluticasone Propionate Nasal 50 MCG/SPRAY BOTTLE NS SCH (08:27)
[2022-01-09] MEDS: lisinopriL 5 MG TABLET PO SCH (08:27)
[2022-01-09] MEDS: Aspirin Enteric Coated 81 MG Tablet PO SCH (08:27)
[2022-01-09] MEDS: Loratadine 10 MG TABLET PO SCH (08:27)
[2022-01-09] MEDS: amLODIPine 5 MG TABLET PO SCH (08:27)
[2022-01-09] MEDS ORDERED: Vancomycin 1,500 MG/265 ML IV.SOLN IVPB ONE (08:55)
[2022-01-09] MEDS ORDERED: (Abiraterone Acetate [Zytiga] 250 MG Tablet) PO SCH (09:00)
[2022-01-09] MEDS ORDERED: predniSONE 5 MG TABLET PO SCH (09:00)
[2022-01-09 10:29] LABS: Estimated Average Glucose 171 mg/dl; Hemoglobin A1C 7.6 %
[2022-01-10] MEDS: (Abiraterone Acetate [Zytiga] 250 MG Tablet) PO SCH (05:49)
[2022-01-10] MEDS: predniSONE 5 MG TABLET PO SCH (05:49)
[2022-01-10] MEDS: *HR* Heparin 5,000 UNIT/ML VIAL SQ SCH (05:50)
[2022-01-10 05:54] LABS: Basophils % 0.3 %; Eosinophils # 0.3 K/mcL (0.0-0.6); Eosinophils % 2.4 %; Hematocrit 43.8 % (37.5-50.1); Immature Granulocytes % 0.4 % (0-4); Lymphocytes # 6.8 K/mcL (0.6-4.6); Lymphocytes % 61.6 %; Mean Corpuscular HGB Conc 33.6 g/dL (31.6-35.5); Mean Corpuscular Hemoglobin 30.4 pg (28.0-33.3); Mean Corpuscular Volume 90.5 fL (83.0-100.0); Mean Platelet Volume 10.4 fL (9.4-12.4); Monocytes # 0.5 K/mcL (0.0-1.3); Monocytes % 4.5 %; Neutrophils # 3.4 K/mcL (1.6-8.9); Platelet Count 180 K/mcL (140-400); Red Blood Count 4.84 M/mcL (4.19-5.50); Red Cell Distribution Width 13.6 % (11.5-14.5); Segmented Neutrophils % 30.8 %; White Blood Count 11.1 K/mcL (4.3-11.1)
[2022-01-10 06:00] LABS: Hemoglobin 14.7 g/dL (12.9-16.9)
[2022-01-10 06:19] LABS: Alanine Aminotransferase 15 Units/L (7-52); Albumin 3.9 g/dL (3.5-5.7); Albumin/Globulin Ratio 2.2 (1.1-2.2); Alkaline Phosphatase 61 Units/L (34-104); Aspartate Amino Transferase 16 Units/L (13-39); BUN/Creatinine Ratio 28 (6-26); Bilirubin,Total 1.2 mg/dL (0.3-1.0); Blood Urea Nitrogen 23 mg/dL (8-23); Calcium 9.5 mg/dL (8.6-10.3); Carbon Dioxide 26 mEq/L (23-29); Chloride 108 mEq/L (98-107); Globulin 1.8 g/dL (2.4-3.5); Glucose 139 mg/dL (70-105); Osmolality,Calculated 300 (280-300); Sodium 142 mEq/L (136-145); Total Protein 5.7 g/dL (6.4-8.9); eGFR For African Americans > 60 (> 60); eGFR For Non-African Americans > 60 (> 60)
[2022-01-10] MEDS ORDERED: Vancomycin 1,500 MG/265 ML IV.SOLN IVPB SCH (09:00)
[2022-01-10] MEDS: Sennosides 8.6 MG TABLET PO SCH (09:07)
[2022-01-10] MEDS: Lactobacillus 1 EACH CAP.SPRINK PO SCH (09:07)
[2022-01-10] MEDS: lisinopriL 5 MG TABLET PO SCH (09:07)
[2022-01-10] MEDS: Loratadine 10 MG TABLET PO SCH (09:10)
[2022-01-10] MEDS: Isosorbide MONOnitrate (24 HR) 30 MG TAB.ER.24H PO SCH (09:14)
[2022-01-10] MEDS: Aspirin Enteric Coated 81 MG Tablet PO SCH (09:14)
[2022-01-10] MEDS: amLODIPine 5 MG TABLET PO SCH (09:15)
[2022-01-10] MEDS: Fluticasone Propionate Nasal 50 MCG/SPRAY BOTTLE NS SCH (09:23)
[2022-01-10 10:48] VITALS: BP 127/79; PULSE 70; TEMP 98.2; O2SAT 95
== END 2022-01-10 16:00 | disposition home or self-care (01) ==
LOC: EMEROOARM 19:06 → 3BNU 19:06 → SUATTDRO 21:03 → 3BNU 21:48
PROVIDERS: ADMIT Internal Medicine; ATTEND Internal Medicine